=== PATIENT | female | born 1935 | race Caucasian/White ===

== ENCOUNTER → 2016-03-05 | Outpatient (CLI) | payer MEDICARE, BC ==
--- NOTE | 2016-03-05 12:16 | WWHP ---
DATE OF SERVICE: 03/05/2016 CHIEF COMPLAINT: The patient is here for her routine gynecologic exam and mammogram. HPI: This is an 80-year-old G8, P6-0-2-5 with an LMP of 1989. The patient is without gynecologic complaints. She denies any postmenopausal bleeding. PAST MEDICAL HISTORY: Chronic hypertension and history of angina. MEDICATIONS: 1. Imdur generic 30 mg daily. 2. Maxzide 37.5/25 mg daily. 3. Aspirin 81 mg daily. 4. Vitamin D 5000 units daily. 5. CoQ10 one daily. 6. Magnesium 250 mg daily. 7. Cholesterol medication and she does not know the name, she takes this daily. Allergies to CODEINE, SULFA, PENICILLIN and SHELLFISH. 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 SOCIAL HISTORY: She denies tobacco and drug use and has 0 to 1 alcoholic drink per month. She has been since 1952. 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 FAMILY HISTORY: Maternal aunt had uterine cancer. Sister has breast cancer in her 80s, brother had bladder cancer, and another brother had prostate cancer. REVIEW OF SYSTEMS: Weight has been stable. She denies respiratory, cardiac, or GI problems. She denies maltreatment or falling. : She denies any problems with urinary incontinence. PHYSICAL EXAM: Blood pressure 130/79. Height 5 feet 0 inches. Weight 135 pounds. Temperature 98.4, pulse 80. This a well-developed, well-nourished white female who is alert and oriented x3, in no acute distress. HEENT is within normal limits. NECK: Supple without mass or thyromegaly. CHEST AND LUNGS: Clear to auscultation. HEART: Regular rate and rhythm. Breasts are without mass or discharge. Axillary exam is negative for adenopathy. BACK: Negative for CVA tenderness. ABDOMEN: Soft, nontender, without palpable mass. PELVIC EXAM: External genitalia reveals mild to moderate atrophy without lesions. Cervix and vagina reveal mild to moderate atrophy without lesions. There is a grade 1 to 2 cystocele. The uterus is midposition, nongravid size and nontender. There are no palpable adnexal masses or tenderness. Rectovaginal exam is negative for mass or tenderness and is negative for occult blood. EXTREMITIES: Nontender. IMPRESSION: An 80-year-old menopausal female with an asymptomatic small cystocele and otherwise unremarkable gynecologic exam. PLAN: 1. Pap smear was deferred, since she had normal one less than 2 years ago. 2. Self breast examination was discussed. 3. Mammogram will be done today. 4. She will continue to follow up with Dr. Vargas for blood pressure evaluation and treatment. 5. Osteoporosis prevention was discussed. 6. She did receive her flu shot this fall. 7. We will plan on repeating bone density test in 1 to 2 years. 8. She will return in one year.
--- NOTE | 2016-03-07 08:00 | MM ---
Reason for exam: screening (asymptomatic). Last mammogram was performed 1 year and 9 months ago. History: Patient is postmenopausal. Family history of breast cancer in sister at age 85. Physical Findings: A clinical breast exam by your physician is recommended on an annual basis and results should be correlated with mammographic findings. MG 3D Screening Mammo W/Cad Bilateral CC and MLO view(s) were taken. Prior study comparison: May 23, 2014, bilateral MG screening mammo w CAD. December 17, 2010, bilateral digital screening mammo w/CAD. There are scattered fibroglandular densities. No significant changes when compared with prior studies. ASSESSMENT: Negative, BI-RAD 1 RECOMMENDATION: Routine screening mammogram of both breasts in 1 year.
== END | disposition home or self-care (01) ==
LOC: WWCWWP 10:29
PROVIDERS: ATTEND Obstetrics & Gynecology
DX: Z12.31 Encounter for screening mammogram for malignant neoplasm of breast (principal)
CPT/HCPCS: 77063; G0202

== ENCOUNTER 2016-10-09 08:33 | Emergency (ER) | payer MEDICARE, BC ==
--- NOTE | 2016-10-09 08:53 | ED ---
General Adult HPI - General Chief complaint: Nausea/Vomiting/Diarrhea Stated complaint: Dx DIVERTICULITIS, STILL HAVING PAIN AND VOMITING Time Seen by Provider: 10/09/16 08:46 Source: patient, RN notes reviewed Mode of arrival: wheelchair Limitations: no limitations - History of Present Illness Initial comments: 81-year-old female presents to the emergency department with a chief complaint of abdominal pain. Patient has had this lower abdominal pain for the past 2 days. She called her doctor he started her on antibiotics for diverticulitis. Patient states is how her diverticulitis always presents it starts low like it is in the bladder and she has terrible pain. Patient states that she has had no nausea vomiting fever chills. Patient states her first dose of antibiotics for 3 AM because she had elevated blood pressures today so she did not want to take them. Patient states that she is having burning type pain but denies any changes in urination. Patient states that she was diagnosed by colonoscopy with diverticulitis once causes it is very hard to find. Patient states this feels exactly like one of her flareups.Patient denies any recent fever, chills, shortness of breath, chest pain, back pain, nausea vomiting, numbness or tingling, dysuria or hematuria, constipation or diarrhea, headaches or visual changes, or any other current symptoms. - Related Data Home Medications Medication Instructions Recorded Confirmed Cyanocobalamin [Vitamin B-12 1,000 injection IM Q30D 09/09/14 10/09/16 Injection] Isosorbide Mononitrate ER [Imdur] 30 mg PO HS 09/09/14 10/09/16 Cholecalciferol [Vitamin D3] 5,000 unit PO DAILY 09/10/14 10/09/16 Magnesium Oxide [Mag-Ox] 250 mg PO DAILY 01/21/16 10/09/16 Aspirin EC [Ecotrin Low Dose] 81 mg PO DAILY 01/25/16 10/09/16 Levofloxacin [Levaquin] 250 mg PO DAILY 10/09/16 10/09/16 Metoprolol Succinate [Toprol XL] 25 mg PO DAILY 10/09/16 10/09/16 Previous Rx's Medication Instructions Recorded Hydrocodone/Acetaminophen [Trail 1 each PO Q6HR PRN #20 tab 10/09/16 5-325] Allergies Allergy/AdvReac Type Severity Reaction Status Date / Time codeine Allergy Unknown Verified 10/09/16 09:08 Penicillins Allergy Unknown Verified 10/09/16 09:08 shellfish derived [Shellfish] Allergy Unknown Verified 10/09/16 09:08 Sulfa (Sulfonamide Allergy Unknown Verified 10/09/16 09:08 Antibiotics) ibuprofen AdvReac Unknown Verified 10/09/16 09:08 Review of Systems ROS Statement: Those systems with pertinent positive or pertinent negative responses have been documented in the HPI. ROS Other: All systems not noted in ROS Statement are negative. Past Medical History Past Medical History: Chest Pain / Angina, Hypertension Additional Past Medical History / Comment(s): diverticulitis History of Any Multi-Drug Resistant Organisms: None Reported Past Surgical History: Appendectomy Past Anesthesia/Blood Transfusion Reactions: No Reported Reaction Past Psychological History: No Psychological Hx Reported Smoking Status: Never smoker Past Alcohol Use History: Occasional Past Drug Use History: None Reported - Past Family History Mother Additional Family Medical History / Comment(s): Angina Father Family Medical History: CVA/TIA Sister(s) Family Medical History: CVA/TIA General Exam - General Exam Comments Initial Comments: General: The patient is awake and alert, in no distress, and does not appear acutely ill. Eye: Pupils are equal, round and reactive to light, extra-ocular movements are intact; there is normal conjunctiva bilaterally. No signs of icterus. Ears, nose, mouth and throat: There are moist mucous membranes and no oral lesions. Neck: The neck is supple, there is no tenderness. Cardiovascular: There is a regular rate and rhythm. No murmur, rub or gallop is appreciated. Respiratory: Lungs are clear to auscultation, respirations are non-labored, breath sounds are equal. No wheezes, stridor, rales, or rhonchi. Gastrointestinal: Soft, non-distended, non-tender abdomen without masses or organomegaly noted. There is no rebound or guarding present. No CVA tenderness. Bowel sounds are unremarkable. Back: There is no tenderness to palpation in the midline. There is no obvious deformity. No rashes noted. Musculoskeletal: Normal ROM, no tenderness, There is no pedal edema. There is no calf tenderness or swelling. Sensation intact. Pulses equal bilaterally 2+. Neurological: CN II-XII intact, There are no obvious motor or sensory deficits. Coordination appears grossly intact. Speech is normal. Skin: Skin is warm and dry and no rashes or lesions are noted. Psychiatric: Cooperative, appropriate mood & affect, normal judgment. Limitations: no limitations Course Vital Signs 10/09/16 10/09/16 10/09/16 08:34 11:36 12:00 Temperature 97.6 F Pulse Rate 72 66 68 Respiratory 16 16 18 Rate Blood Pressure 156/93 191/79 160/75 O2 Sat by Pulse 96 95 95 Oximetry 10/09/16 12:30 Temperature 97.9 F Pulse Rate 62 Respiratory 16 Rate Blood Pressure 159/74 O2 Sat by Pulse 94 L Oximetry Medical Decision Making - Medical Decision Making 81-year-old female presents to the emergency department with a chief complaint of abdominal pain. At this time patient's CAT scan blood work have been reviewed. There is no white blood cell count CAT scan is not shy no diverticulitis. This time we discussed patient can continue her Levaquin for home. We discussed close follow-up with her doctor. We will give her pain medications to help we did discuss return parameters all her questions. Patient stated that she understood and she is given plan. She'll be discharged home. - Lab Data Result diagrams: 10/09/16 09:35 10/09/16 09:35 Lab Results 10/09/16 10/09/16 10/09/16 Range/Units 09:35 09:35 09:35 WBC 6.9 (3.8-10.6) k/uL RBC 4.11 (3.80-5.40) m/uL Hgb 14.0 (11.4-16.0) gm/dL Hct 42.0 (34.0-46.0) % MCV 102.1 H (80.0-100.0) fL MCH 34.1 (25.0-35.0) pg MCHC 33.4 (31.0-37.0) g/dL RDW 13.7 (11.5-15.5) % Plt Count 244 (150-450) k/uL Neutrophils % 75 % Lymphocytes % 17 % Monocytes % 5 % Eosinophils % 1 % Basophils % 0 % Neutrophils # 5.2 (1.3-7.7) k/uL Lymphocytes # 1.2 (1.0-4.8) k/uL Monocytes # 0.3 (0-1.0) k/uL Eosinophils # 0.1 (0-0.7) k/uL Basophils # 0.0 (0-0.2) k/uL Macrocytosis Slight Sodium 130 L (137-145) mmol/L Potassium 4.8 (3.5-5.1) mmol/L Chloride 96 L (98-107) mmol/L Carbon Dioxide 26 (22-30) mmol/L Anion Gap 8 mmol/L BUN 20 H (7-17) mg/dL Creatinine 0.86 (0.52-1.04) mg/dL Est GFR (MDRD) Af Amer >60 (>60 ml/min/1.73 sqM) Est GFR (MDRD) Non-Af >60 (>60 ml/min/1.73 sqM) Glucose 100 H (74-99) mg/dL Plasma Lactic Acid Jesus 1.0 (0.7-2.0) mmol/L Calcium 9.7 (8.4-10.2) mg/dL Total Bilirubin 0.8 (0.2-1.3) mg/dL AST 27 (14-36) U/L ALT 32 (9-52) U/L Alkaline Phosphatase 55 (38-126) U/L Total Protein 7.3 (6.3-8.2) g/dL Albumin 4.1 (3.5-5.0) g/dL Amylase 82 (30-110) U/L Lipase 165 (23-300) U/L Urine Color Urine Appearance (Clear) Urine pH (5.0-8.0) Ur Specific [place] (1.001-1.035) Urine Protein (Negative) Urine Glucose (UA) (Negative) Urine Ketones (Negative) Urine Blood (Negative) Urine Nitrite (Negative) Urine Bilirubin (Negative) Urine Urobilinogen (<2.0) mg/dL Ur Leukocyte Esterase (Negative) Urine RBC (0-5) /hpf Urine WBC (0-5) /hpf Amorphous Sediment (None) /hpf Urine Mucus (None) /hpf 10/09/16 Range/Units 09:35 WBC (3.8-10.6) k/uL RBC (3.80-5.40) m/uL Hgb (11.4-16.0) gm/dL Hct (34.0-46.0) % MCV (80.0-100.0) fL MCH (25.0-35.0) pg MCHC (31.0-37.0) g/dL RDW (11.5-15.5) % Plt Count (150-450) k/uL Neutrophils % % Lymphocytes % % Monocytes % % Eosinophils % % Basophils % % Neutrophils # (1.3-7.7) k/uL Lymphocytes # (1.0-4.8) k/uL Monocytes # (0-1.0) k/uL Eosinophils # (0-0.7) k/uL Basophils # (0-0.2) k/uL Macrocytosis Sodium (137-145) mmol/L Potassium (3.5-5.1) mmol/L Chloride (98-107) mmol/L Carbon Dioxide (22-30) mmol/L Anion Gap mmol/L BUN (7-17) mg/dL Creatinine (0.52-1.04) mg/dL Est GFR (MDRD) Af Amer (>60 ml/min/1.73 sqM) Est GFR (MDRD) Non-Af (>60 ml/min/1.73 sqM) Glucose (74-99) mg/dL Plasma Lactic Acid Jesus (0.7-2.0) mmol/L Calcium (8.4-10.2) mg/dL Total Bilirubin (0.2-1.3) mg/dL AST (14-36) U/L ALT (9-52) U/L Alkaline Phosphatase (38-126) U/L Total Protein (6.3-8.2) g/dL Albumin (3.5-5.0) g/dL Amylase (30-110) U/L Lipase (23-300) U/L Urine Color Yellow Urine Appearance Cloudy H (Clear) Urine pH 7.5 (5.0-8.0) Ur Specific [place] 1.012 (1.001-1.035) Urine Protein Trace H (Negative) Urine Glucose (UA) Negative (Negative) Urine Ketones Negative (Negative) Urine Blood Negative (Negative) Urine Nitrite Negative (Negative) Urine Bilirubin Negative (Negative) Urine Urobilinogen <2.0 (<2.0) mg/dL Ur Leukocyte Esterase Negative (Negative) Urine RBC 2 (0-5) /hpf Urine WBC <1 (0-5) /hpf Amorphous Sediment Rare H (None) /hpf Urine Mucus Rare H (None) /hpf - Radiology Data Radiology results: report reviewed, image reviewed Disposition Clinical Impression: Abdominal pain Disposition: HOME SELF-CARE Condition: Stable Instructions: Abdominal Pain (ED) Additional Instructions: Please use medication as discussed. Please follow up with family doctor if symptoms have not improved over the next two days. Please return to the emergency room if your symptoms increase or worsen or for any other concerns. Prescriptions: Hydrocodone/Acetaminophen [Trail 5-325] 1 each PO Q6HR PRN #20 tab PRN Reason: Pain Referrals: Deven Vargas MD [Primary Care Provider] - 1-2 days
[2016-10-09] MEDS ORDERED: RX INFO: IV CONTRAST WAS GIVEN 1 EACH MISC MISCELLANE PRN (09:24)
[2016-10-09] MEDS ORDERED: methylPREDNISolone SOD SUCCI 125 MG/2 ML VIAL IV STA (09:33)
[2016-10-09] MEDS ORDERED: diphenhydrAMINE 50 MG/ML 1 ML VIAL IVP STA (09:33)
[2016-10-09 09:53] LABS: Basophils % (A) 0 %; CH 35.1; CHCM 34.5; Eosinophils # (A) 0.1 k/uL (0-0.7); Eosinophils % (A) 1 %; HDW 2.24; Luc # (Auto) 0.12; Luc % (Auto) 2; Lymphocytes # (A) 1.2 k/uL (1.0-4.8); Lymphocytes % (A) 17 %; MCH 34.1 pg (25.0-35.0); MCHC 33.4 g/dL (31.0-37.0); MCV 102.1 fL (80.0-100.0); Macrocytosis Slight; Mean Platelet Volume 7.6; Monocytes # (A) 0.3 k/uL (0-1.0); Monocytes % (A) 5 %; Neutrophils # (A) 5.2 k/uL (1.3-7.7); Neutrophils % (A) 75 %; RBC 4.11 m/uL (3.80-5.40); RDW 13.7 % (11.5-15.5); WBC 6.9 k/uL (3.8-10.6); WBC (Perox) 6.93
[2016-10-09 09:54] LABS: Amorphous Sediment,Urine Rare /hpf; Appearance,Urine Cloudy (Clear); Bilirubin,Urine Negative (Negative); Glucose,Urine (UA) Negative (Negative); Ketones,Urine Negative (Negative); Leukocyte Esterase,Urine Negative (Negative); Mucus,Urine Rare /hpf; Nitrite,Urine Negative (Negative); PH, Urine 7.5 (5.0-8.0); Particle Count 10359; Protein,Urine Trace (Negative); RBC,Urine 2 /hpf (0-5); Specific Gravity,Urine 1.012 (1.001-1.035); UA Billing (MACRO vs. MICRO) MICRO; Urobilinogen,Urine <2.0 mg/dL (<2.0); WBC,Urine <1 /hpf (0-5)
[2016-10-09 10:02] LABS: ALT 32 U/L (9-52); AST 27 U/L (14-36); Alkaline Phosphatase 55 U/L (38-126); Amylase 82 U/L (30-110); Anion Gap 8 mmol/L; Blood Urea Nitrogen 20 mg/dL (7-17); Calcium 9.7 mg/dL (8.4-10.2); Carbon Dioxide 26 mmol/L (22-30); Chloride 96 mmol/L (98-107); Glucose 100 mg/dL (74-99); Non-African American GFR(MDRD) >60 (>60 ml/min/1.73 sqM); Sodium 130 mmol/L (137-145); Total Bilirubin 0.8 mg/dL (0.2-1.3); Total Protein 7.3 g/dL (6.3-8.2)
[2016-10-09 10:05] LABS: Potassium 4.8 mmol/L (3.5-5.1)
--- NOTE | 2016-10-09 11:17 | CT ---
EXAMINATION TYPE: CT abdomen pelvis w con DATE OF EXAM: 10/09/2016 HISTORY: Diverticulitis, vomitting and pain CT DLP: 456.30mGycm Automated Exposure Control for Dose Reduction was Utilized. CONTRAST: CT scan of the abdomen and pelvis is performed with IV Contrast, patient injected with 100 ml mL of O mnipaque 300. COMPARISON: CT [facility]otech abdomen and pelvis dated 01/21/2016 FINDINGS: LUNG BASES: Multifocal scarring is seen within the lung bases with no focal consolidation or pleural effusion. LIVER/GB: A 7 mm hepatic cyst measures Hounsfield units of simple fluid on coronal images. Subcapsula r 5 mm hypoattenuated hepatic lesion that is too small to accurately characterize as seen on series 3 image 15 and series 7 image 15. This statistically represents a second cyst. Focal fatty infiltratio n is seen near the falciform for the ligamentum teres. Gallbladder is unremarkable. PANCREAS: No significant abnormality is seen. No ductal dilatation. SPLEEN: No significant abnormality is seen. ADRENALS: No significant abnormality is seen. KIDNEYS: No significant abnormality is seen. BOWEL: Numerous sigmoid diverticula are present without pericolonic fat stranding. Few scattered panc olonic diverticula are also seen without surrounding inflammatory change. There is focal narrowing of the sigmoid colon in a short segment on series 3 image 15, which may be related to peristalsis as it is not as pronounced on coronal imaging. There is no evidence of bowel obstruction. UTERUS/ADNEXA: No gross abnormality seen. LYMPH NODES: No greater than 1cm abdominal or pelvic lymph nodes are appreciated. OSSEOUS STRUCTURES: Degenerative changes are appreciated of the lumbosacral spine as well as grade 1 anterolisthesis of L4 on L5. Degenerative changes are also seen of the femoral acetabular joints. OTHER: Severe circumferential calcific changes are seen of the abdominal aorta and its branches. Ther e is a fusiform short segment area of infrarenal abdominal aortic ectasia measuring 2.6 cm best seen on coronal series 7 image 34 spanning approximately 2 cm in length. Calcifications are seen at the os tia of the aortic branch vessels with symmetric perfusion to the kidneys. No gross evidence of bowel wall thickening.. IMPRESSION: 1. No significant acute finding is seen to account for patient's clinical symptoms. No evidence of mayi wel obstruction. Focal area of narrowing within the sigmoid colon is thought to relate to peristalsis . 2. Pancolonic diverticulosis without evidence of diverticulitis. Severe calcific atheromatous changes of the abdominal aorta, its branches, and ostia of the branch ve ssels. 3. Simple hepatic cyst and additional lesion that is too small to accurately characterize but statist ically also represents a simple cyst. 4. Grade 1 anterolisthesis of L4 on L5.
[2016-10-09] MEDS ORDERED: MORPHINE SULFATE 4 MG/ML SYRINGE IV STA (11:48)
[2016-10-09 12:30] VITALS: BP 159/74; PULSE 62; RESP 16; TEMP 97.9
[2016-10-10] MEDS ORDERED: FAMOTIDINE 20 MG/2 ML VIAL IV SCH (09:00)
== END 2016-10-09 12:44 | disposition home or self-care (01) ==
LOC: EC 08:33
DX: R10.30 Lower abdominal pain, unspecified (principal); I10 Essential (primary) hypertension; Z86.79 Personal history of other diseases of the circulatory system; Z79.82 Long term (current) use of aspirin; Z79.899 Other long term (current) drug therapy; Z88.0 Allergy status to penicillin; Z88.2 Allergy status to sulfonamides; Z88.5 Allergy status to narcotic agent; Z88.6 Allergy status to analgesic agent; Z91.013 Allergy to seafood; Z90.49 Acquired absence of other specified parts of digestive tract
CPT/HCPCS: 99284; 96374; 96375 ×3; 36415; 80053; 82150; 83605; 83690; 85025; 81001; 87040; 87086; 74177; J2270; J1200; J2930; Q9967

== ENCOUNTER 2016-11-12 10:49 | Day surgery (SDC) | payer MEDICARE, BC ==
[2016-11-06 15:10] VITALS: BMI 24.6
[~2016-11-12 10:49] MED LIST: CLINDAMYCIN 900 MG in DEXTROSE 5% IN WATER 50 ML IVPB ONE; DEXAMETHASONE SOD PHOSPHATE 10 MG/ML 1 ML VIAL IV ONE; HEPARIN SODIUM,PORCINE 5,000 UNIT/ML 1 ML VIAL SQ ONE; LIDOCAINE 1% 20 ML VIAL (10MG/ML) FOR IV START INTRADERMA PRN; ONDANSETRON 4 MG/2 ML VIAL IVP ONE
--- NOTE | 2016-11-12 12:36 | P.GSHP ---
History of Present Illness H&P Date: 11/12/16 Chief Complaint: Right upper quadrant pain This 81-year-old female who's had difficulties with right upper quadrant pain. Her recent HIDA scan shows abnormal ejection fraction consistent with chronic cholecystitis. She presents today for laparoscopic cholecystectomy Past Medical History Past Medical History: Hypertension Additional Past Medical History / Comment(s): diverticulitis History of Any Multi-Drug Resistant Organisms: None Reported Past Surgical History: Appendectomy Past Anesthesia/Blood Transfusion Reactions: No Reported Reaction Smoking Status: Never smoker - Past Family History Brother(s) Family Medical History: Cancer Mother Additional Family Medical History / Comment(s): Angina Father Family Medical History: CVA/TIA Sister(s) Family Medical History: Cancer, CVA/TIA Medications and Allergies Home Medications Medication Instructions Recorded Confirmed Type Cyanocobalamin [Vitamin B-12 1,000 mcg IM Q30D 09/09/14 11/06/16 History Injection] Isosorbide Mononitrate ER [Imdur] 30 mg PO HS 09/09/14 11/06/16 History Cholecalciferol [Vitamin D3] 1,000 unit PO DAILY 09/10/14 11/06/16 History Magnesium Oxide [Mag-Ox] 250 mg PO DAILY 01/21/16 11/06/16 History Aspirin EC [Ecotrin Low Dose] 81 mg PO DAILY 01/25/16 11/06/16 History Metoprolol Succinate [Toprol XL] 50 mg PO DAILY 10/09/16 11/06/16 History LORazepam [Ativan] 0.5 mg PO TID PRN 11/06/16 11/06/16 History Ubidecarenone [Co Q-10] 100 mg PO DAILY 11/06/16 11/06/16 History Valsartan [Diovan] 40 mg PO AC-SUPPER PRN 11/06/16 11/06/16 History traMADol HCL/ACETAMINOPHEN 0.5 tab PO HS PRN 11/06/16 11/06/16 History [Ultracet 37.5-325] Allergies Allergy/AdvReac Type Severity Reaction Status Date / Time codeine Allergy Unknown Verified 11/12/16 12:30 Penicillins Allergy Unknown Verified 11/12/16 12:30 shellfish derived [Shellfish] Allergy Unknown Verified 11/12/16 12:30 Sulfa (Sulfonamide Allergy Unknown Verified 11/12/16 12:30 Antibiotics) ibuprofen AdvReac Unknown Verified 11/12/16 12:30 Surgical - Exam - General well developed, no distress - Eyes PERRL - ENT normal pinna - Neck no masses - Respiratory normal expansion - Cardiovascular Rhythm: regular - Abdomen Abdomen: soft, non tender Assessment and Plan Plan: Chronic cholecystitis. We'll perform laparoscopic cholecystectomy
[2016-11-12] MEDS: LACTATED RINGERS 1,000 ML IV ONE ×2 (12:49→13:30)
[2016-11-12] MEDS ORDERED: ROCURONIUM BROMIDE 10 MG/ML 10 ML VIAL IV ONE (13:33)
[2016-11-12] MEDS ORDERED: PROPOFOL 10 MG/ML 20 ML VIAL IV ONE (13:33)
[2016-11-12] MEDS ORDERED: GLYCOPYRROLATE 0.2 MG/ML 2 ML VIAL ONE (13:33)
[2016-11-12] MEDS ORDERED: LABETALOL 5 MG/ML VIAL MDV ONE (13:33)
[2016-11-12] MEDS ORDERED: NEOSTIGMINE 1 MG/ML 10 ML VIAL ONE (13:33)
[2016-11-12] MEDS ORDERED: LIDOCAINE 1% INJ 10MG/ML (20 ML MDV) ONE (13:33)
[2016-11-12] MEDS ORDERED: fentaNYL (PF) 50 MCG/ML 2 ML AMP ONE (13:33)
[2016-11-12] MEDS ORDERED: SUCCINYLCHOLINE CHLORIDE 100 MG/5 ML SYR IV ONE (13:33)
[2016-11-12] MEDS ORDERED: LIDOCAINE 2%-EPI 1:100,000 20 ML VIAL SQ ONE (13:58)
--- NOTE | 2016-11-12 14:13 | P.OP ---
Date of Procedure: 11/12/16 Preoperative Diagnosis: Cholecystitis Postoperative Diagnosis: Cholecystitis Procedure(s) Performed: Laparoscopic cholecystectomy Anesthesia: MELVIN Surgeon: Celestine Oakes Estimated Blood Loss (ml): 5 Pathology: other (Gallbladder) Condition: stable Disposition: PACU Description of Procedure: The patient was placed on the operating table. The patient received a general endotracheal tube anesthesia. The patients abdomen was prepped and draped in the usual sterile fashion. Through an infraumbilical stab incision, the fascia of the anterior abdominal wall was grasped with a pair of Kochers and then the Veress needle was placed in the peritoneal cavity. Position of the Veress needle was confirmed with positive drop test. The abdomen was then insufflated. After adequate insufflation, the 10 mm trocar was placed in the peritoneal cavity. Following this the laparoscope was placed in the peritoneal cavity. The patient was placed in the head-up, right side up position and then a 5 mm trocar was placed in the right lateral and right subcostal position under direct visualization. A 8 mm trocar was placed in the epigastric position. The gallbladder was grasped in the fundus and infundibulum. Traction on the gallbladder was placed in the lateral and the cephalad positions. The triangle of Calot was visualized.. The cystic duct was bluntly dissected until the union of the cystic duct and common bile duct was seen. The cystic duct was then divided and sealed with the Harmonic scissors. A PDS Endoloop was then placed throughout the cystic duct stump. The cystic artery divided and sealed with the Harmonic scissors. The gallbladder was then removed from the liver bed using Harmonic scissors. The gallbladder was then extracted through the epigastric port site. Operative field was checked for any bleeding spots and Harmonic scissors was used to coagulate the liver bed. The abdomen was irrigated. The trocars were removed. The skin was closed using interrupted 3-0 Vicryl suture. Dermabond dressing were applied. The patient tolerated the procedure well.
[2016-11-12 14:39] VITALS: TEMP 97
[2016-11-12] MEDS: HYDROmorphone 1 MG/ML 1 ML SYRINGE IVP ONE ×2 (14:58→15:05)
[2016-11-12 15:17] VITALS: RESP 16
[2016-11-12] MEDS ORDERED: LACTATED RINGERS 1,000 ML IV ONE (15:18)
[2016-11-12] MEDS ORDERED: HYDROcodone/APAP 7.5-325MG 1 EACH TAB PO ONE (16:15)
[2016-11-12 16:25] VITALS: BP 133/78; PULSE 59
== END 2016-11-12 17:09 | disposition home or self-care (01) ==
LOC: OR 10:49
PROVIDERS: ATTEND Surgery
DX: K81.1 Chronic cholecystitis (principal); I10 Essential (primary) hypertension; Z79.82 Long term (current) use of aspirin; Z79.899 Other long term (current) drug therapy; Z88.6 Allergy status to analgesic agent; Z88.5 Allergy status to narcotic agent; Z88.0 Allergy status to penicillin; Z88.2 Allergy status to sulfonamides
CPT/HCPCS: 47562; 88304; J1644; J1100; J2710; J2405; J2001; J3010; J1170; J0330; J2704

== ENCOUNTER → 2017-03-12 | Outpatient (CLI) | payer MEDICARE, BC ==
[2017-03-12 16:53] LABS: Potassium 4.4 mmol/L (3.5-5.1)
== END | disposition home or self-care (01) ==
LOC: LABWHC1 15:22
PROVIDERS: ATTEND Internal Medicine Cardiovascular Disease
DX: I10 Essential (primary) hypertension (principal)
CPT/HCPCS: 36415; 80051; 82565; 84520

== ENCOUNTER → 2017-03-24 | Outpatient (CLI) | payer MEDICARE, BC ==
--- NOTE | 2017-03-24 11:50 | WWHP ---
[facility] - HISTORY AND PHYSICAL DATE OF DICTATION: 03/24/2017 CHIEF COMPLAINT: The patient is here for her routine gynecologic exam and mammogram. HPI: This is an 81-year-old, G8, P6-0-2-5 with an LMP of 1989. The patient is without gynecologic complaints. PAST MEDICAL HISTORY: Chronic hypertension and history of angina. MEDICATIONS: 1. Imdur generic 30 mg daily. 2. Maxzide 37.5/25 mg daily. 3. Aspirin 81 mg daily. 4. Vitamin D 2000 units daily. 5. Co Q10 1 daily. 6. Magnesium 250 mg daily. 7. She was given a prescription for Crestor 1 daily, but she has not started this yet. ALLERGIES: TO CODEINE, SULFA, AND PENICILLIN. PAST SURGICAL HISTORY: Appendectomy at age 16, multiple colonoscopies in the past and most recent was in 2017, laparoscopic cholecystectomy 2017, bilateral cataract surgery 2017. Osteopenia. 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 FAMILY HISTORY: Maternal aunt had uterine cancer. Sister has breast cancer in her 80s. Brothers had bladder cancer and another brother had prostate cancer. SOCIAL HISTORY: She denies tobacco and drug use and has 0 to 1 alcohol-containing drink per month. She has been since 1953 and is infrequently sexually active. 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 REVIEW OF SYSTEMS: She has lost 3 pounds over the last year. She denies respiratory cardiac or GI problems. She denies maltreatment or falling. She denies any significant problems with urinary incontinence. PHYSICAL EXAM: Blood pressure 162/82, height 5 feet 0 inches, weight 132 pounds. BMI 26. Temperature 97.9, pulse 71. This is a well-developed, well-nourished, white female, who is alert and oriented x3, in no acute distress. HEENT: Within normal limits. NECK: Supple without mass or thyromegaly chest and LUNGS: Clear to auscultation. HEART: Regular rate and rhythm. Breasts are without mass or discharge. Axillary exam is negative for adenopathy. Back negative for CVA tenderness. ABDOMEN: Soft, nontender, without palpable masses. Pelvic exam external genitalia reveals [id number] atrophy without lesions. Cervix and vagina reveals mild-to- moderate atrophy without lesions. There is no significant prolapse noted. The uterus is mid position nongravid size and nontender. There are no palpable adnexal masses or tenderness. Rectovaginal exam is negative for mass or tenderness and is negative for occult blood. Extremities nontender. IMPRESSION: 1. 81-year-old menopausal female with normal gynecologic exam. 2. Osteopenia. PLAN: 1. Pap smear was performed. 2. Self breast examination was discussed. 3. Mammogram will be done today. 4. Osteoporosis prevention was discussed. I have recommended repeating her bone density testing. She would like to repeat this next year when she comes for her annual exam. 5. She did receive a flu shot this past fall. 6. She will return in 1 year. MMODL / IJN: [id number] / [id number]
--- NOTE | 2017-03-25 10:51 | MM ---
Reason for exam: screening (asymptomatic). Last mammogram was performed 1 year and 1 month ago. History: Patient is postmenopausal. Family history of breast cancer in sister at age 85. Physical Findings: A clinical breast exam by your physician is recommended on an annual basis and results should be correlated with mammographic findings. MG 3D Screening Mammo W/Cad Bilateral CC and MLO view(s) were taken. Prior study comparison: March 05, 2016, bilateral MG 3d screening mammo w/cad. May 23, 2014, bilateral MG screening mammo w CAD. There are scattered fibroglandular densities. Finding: There are typically benign vascular, round calcifications in both breasts. There is no discrete abnormality. ASSESSMENT: Benign, BI-RAD 2 RECOMMENDATION: Routine screening mammogram of both breasts in 1 year.
== END | disposition home or self-care (01) ==
LOC: WWCWWP 09:12
PROVIDERS: ATTEND Obstetrics & Gynecology
DX: Z12.31 Encounter for screening mammogram for malignant neoplasm of breast (principal)
CPT/HCPCS: 77063; 77067

== ENCOUNTER → 2017-06-11 | Outpatient (CLI) | payer MEDICARE, BC ==
--- NOTE | 2017-06-11 16:56 | CT ---
EXAMINATION TYPE: CT abdomen pelvis w con DATE OF EXAM: 06/11/2017 COMPARISON: 10/09/2016 HISTORY: Follow up for diverticulitis CT DLP: 433.5 mGycm Automated exposure control for dose reduction was used. TECHNIQUE: Helical acquisition of images was performed from the lung bases through the pelvis. CONTRAST: Performed with Oral Contrast and with IV Contrast, patient injected with 80ml mL of Isovue 300. FINDINGS: There is mild linear density at the lung bases consistent with subsegmental atelectasis. There is no pleural effusion. Heart is slightly enlarged. Thoracic aorta is atheromatous. Liver spleen pancreas appear normal. Bile ducts are not dilated. Gallbladder is not seen. There is no adrenal mass. Kidneys show satisfactory contrast opacification. There is no hydronephrosi s. Abdominal aorta is atheromatous. There is no retroperitoneal adenopathy. The iliac arteries are at heromatous. There is minimal fat stranding around the junction of the descending colon with the sigmoid colon. Th ere are multiple diverticula in the sigmoid colon. There is no evidence of an abscess. There is no as cites. I see no evidence of a bowel obstruction. There is no intestinal wall thickening. There are sp ondylotic changes in the lumbar spine. There is no compression fracture. Uterus is anteverted. Bladde r distends smoothly. There is no sign of a pelvic mass. IMPRESSION: EXTENSIVE COLONIC DIVERTICULOSIS. THERE IS VERY MINIMAL INFLAMMATORY CHANGE IN THE PROXIMAL SIGMOID C OLON CONSISTENT WITH MILD FOCAL DIVERTICULITIS. THIS IS NEW COMPARED TO THE OLD CT SCAN. NO ABSCESS. There is stable scarring and subsegmental atelectasis at the lung bases.
== END | disposition home or self-care (01) ==
LOC: RADCTMAIN 14:42
PROVIDERS: ATTEND Surgery
DX: K57.30 Diverticulosis of large intestine without perforation or abscess without bleeding (principal); Z91.013 Allergy to seafood; Z88.0 Allergy status to penicillin; Z88.6 Allergy status to analgesic agent; Z88.2 Allergy status to sulfonamides
CPT/HCPCS: 82565; 84520; 74177; 36415; Q9967

== ENCOUNTER → 2018-06-01 | Outpatient (CLI) | payer MEDICARE, BC ==
[2018-06-01 14:06] VITALS: BP 150/80; PULSE 65; RESP 18; TEMP 98.2; BMI 25.4
--- NOTE | 2018-06-01 14:42 | P.HPOB ---
History of Present Illness H&P Date: 06/01/18 Chief Complaint: The patient is here for her routine gynecologic exam and ma mmogram. This is an 82-year-old with an LMP of 1989. The patient is without gynecologic complaints and denies any postmenopausal bleeding. She is sexually active. Review of Systems Her weight has been stable. She denies respiratory, cardiac and G.I. problems. She denies maltreatment or problems with falling. : she denies any significant problems with urinary leakage. Past Medical History Past Medical History: Hypertension Additional Past Medical History / Comment(s): diverticulosis/diverticulitis and angina in the past. Osteopenia. 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 History of Any Multi-Drug Resistant Organisms: None Reported Past Surgical History: Appendectomy, Cholecystectomy Additional Past Surgical History / Comment(s): Bilateral cataract surgery. Colonoscopy 2016(multiple in past). Past Anesthesia/Blood Transfusion Reactions: No Reported Reaction Past Psychological History: No Psychological Hx Reported Smoking Status: Never smoker Past Alcohol Use History: Occasional (0-1 per month) Past Drug Use History: None Reported Additional History: She has been since 1953 and is infrequently sexually active. 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 - Past Family History Brother(s) Family Medical History: Cancer Additional Family Medical History / Comment(s): Bladder cancer and another brother had prostate cancer. Mother Additional Family Medical History / Comment(s): Angina Father Family Medical History: CVA/TIA Sister(s) Family Medical History: Cancer, CVA/TIA Additional Family Medical History / Comment(s): Breast cancer in her 80s. Medications and Allergies Home Medications Medication Instructions Recorded Confirmed Type Cyanocobalamin [Vitamin B-12 1,000 mcg IM Q30D 09/09/14 06/01/18 History Injection] Isosorbide Mononitrate ER [Imdur] 30 mg PO HS 09/09/14 06/01/18 History Cholecalciferol [Vitamin D3] 1,000 unit PO DAILY 09/10/14 06/01/18 History Magnesium Oxide [Mag-Ox] 250 mg PO DAILY 01/21/16 06/01/18 History Aspirin EC [Ecotrin Low Dose] 81 mg PO DAILY 01/25/16 06/01/18 History LORazepam [Ativan] 0.5 mg PO TID PRN 11/06/16 06/01/18 History Ubidecarenone [Co Q-10] 100 mg PO DAILY 11/06/16 06/01/18 History traMADol HCL/ACETAMINOPHEN 0.5 tab PO HS PRN 11/06/16 06/01/18 History [Ultracet 37.5-325] Nebivolol HCl [Bystolic] 2.5 mg PO DAILY 06/01/18 06/01/18 History Allergies Allergy/AdvReac Type Severity Reaction Status Date / Time codeine Allergy Unknown Verified 06/01/18 14:00 Penicillins Allergy Unknown Verified 06/01/18 14:00 shellfish derived [Shellfish] Allergy Unknown Verified 06/01/18 14:00 Sulfa (Sulfonamide Allergy Unknown Verified 06/01/18 14:00 Antibiotics) ibuprofen AdvReac Unknown Verified 06/01/18 14:00 Exam Vital Signs Temp Pulse Resp BP Pulse Ox 06/01/18 14:03 98.2 F 65 18 150/80 99 Intake and Output 05/31/18 06/01/18 06/01/18 22:59 06:59 14:59 Other: Weight 58.967 kg Height 5'0", weight 130 pounds, BMI 25.4. This is a well-developed well-nourished white female who is alert and oriented times 3 in no acute distress. HEENT: Within normal limits. NECK: Supple without mass or thyromegaly. CHEST AND LUNGS: Clear to auscultation. HEART: Regular rate and rhythm. BREASTS: Are without mass or discharge. AXILLARY EXAM: Negative for adenopathy. BACK: Negative for CVA tenderness. ABDOMEN: Soft, nontender, without palpable masses. PELVIC EXAM: Normal external genitalia with mild to moderate atrophy. Cervix and vagina appear normal with mild atrophy. There is no unusual discharge. There is no evidence of prolapse. The uterus is midposition, nongravid size and nontender. There are no palpable adnexal masses or tenderness. RECTAL EXAM: rectovaginal exam is negative for mass or tenderness and is negative for occult blood. EXTREMITIES: Nontender. IMPRESSION: 1. 82-year-old menopausal female with normal gynecologic exam. 2. Osteopenia. PLAN: 1. Pap smear was deferred since she had a normal one on 03/24/17. 2. Self breast awareness was discussed with the patient. 3. Screening mammogram will be done today. 4. Osteoporosis prevention was discussed. I have stressed the importance of adequate calcium, vitamin D and regular exercise. Recommended amounts of calcium and vitamin D were also discussed. 5. She plans to get a flu shot next fall. She missed last year's flu shot. 6.She was advised to return in one year for her annual well woman exam.
--- NOTE | 2018-06-03 11:07 | MM ---
Reason for exam: screening (asymptomatic). Last mammogram was performed 1 year and 2 months ago. History: Patient is postmenopausal. Family history of breast cancer in sister at age 85. Physical Findings: A clinical breast exam by your physician is recommended on an annual basis and results should be correlated with mammographic findings. MG 3D Screening Mammo W/Cad Bilateral CC and MLO view(s) were taken. Prior study comparison: March 24, 2017, bilateral MG 3d screening mammo w/cad. March 05, 2016, bilateral MG 3d screening mammo w/cad. No significant changes when compared with prior studies. ASSESSMENT: Benign, BI-RAD 2 RECOMMENDATION: Routine screening mammogram of both breasts in 1 year.
== END ==
LOC: WWCWWP 13:46
PROVIDERS: ATTEND Obstetrics & Gynecology
DX: Z12.31 Encounter for screening mammogram for malignant neoplasm of breast (principal)
CPT/HCPCS: 77063; 77067

== ENCOUNTER 2018-10-19 15:12 | Observation (INO) | payer MEDICARE, BC ==
[2018-10-19] MEDS ORDERED: SODIUM CHLORIDE 0.9% 500 ML 500 ML IV STA (15:42)
[2018-10-19] MEDS ORDERED: MORPHINE SULFATE 4 MG/ML SYRINGE IVP STA (15:43)
[2018-10-19 16:04] LABS: Appearance,Urine Clear (Clear); Bilirubin,Urine Negative (Negative); Blood,Urine Trace (Negative); Color,Urine Light Yellow; Glucose,Urine (UA) Negative (Negative); Ketones,Urine Negative (Negative); Leukocyte Esterase,Urine Negative (Negative); Mucus,Urine Rare /hpf; Nitrite,Urine Negative (Negative); PH, Urine 5.5 (5.0-8.0); Protein,Urine Negative (Negative); RBC,Urine 1 /hpf (0-5); Specific Gravity,Urine 1.008 (1.001-1.035); Squamous Epithelial Cell,Urine <1 /hpf (0-4); Urobilinogen,Urine <2.0 mg/dL (<2.0); WBC,Urine <1 /hpf (0-5)
[2018-10-19 16:05] LABS: Basophils # (A) 0.1 k/uL (0-0.2); Basophils % (A) 1 %; Eosinophils # (A) 0.2 k/uL (0-0.7); Eosinophils % (A) 3 %; HCT 38.3 % (34.0-46.0); HGB 12.5 gm/dL (11.4-16.0); Lymphocytes # (A) 2.2 k/uL (1.0-4.8); Lymphocytes % (A) 31 %; MCH 33.4 pg (25.0-35.0); MCHC 32.6 g/dL (31.0-37.0); MCV 102.5 fL (80.0-100.0); Macrocytosis Slight; Mean Platelet Volume 7.7; Monocytes # (A) 0.5 k/uL (0-1.0); Monocytes % (A) 7 %; Neutrophils % (A) 56 %; Platelet Count 220 k/uL (150-450); RBC 3.73 m/uL (3.80-5.40); RDW 13.7 % (11.5-15.5); WBC 7.2 k/uL (3.8-10.6)
[2018-10-19] MEDS: ONDANSETRON 4 MG/2 ML VIAL IVP STA ×2 (16:10→17:27)
[2018-10-19] MEDS: MORPHINE SULFATE 2 MG/ML SYRINGE IVP STA ×2 (16:10→17:27)
[2018-10-19 16:14] LABS: Albumin 3.9 g/dL (3.5-5.0); Calcium 8.8 mg/dL (8.4-10.2); Total Bilirubin 0.6 mg/dL (0.2-1.3); Total Protein 6.9 g/dL (6.3-8.2)
--- NOTE | 2018-10-19 16:25 | ED ---
General Adult HPI - General Chief complaint: Nausea/Vomiting/Diarrhea Stated complaint: Side Pain Time Seen by Provider: 10/19/18 15:23 Source: patient, RN notes reviewed Mode of arrival: ambulatory Limitations: no limitations - History of Present Illness Initial comments: 83-year-old female with a past medical history of hypertension, diverticulitis, angina presents to the emergency determine for chief complaint of left-sided mid back pain. States that she noticed this yesterday. States she's getting out of a car walking to a filled tooth on a boat when she felt a twinge in the left side of her back. States it has not been there pretty consistently since then. States that it is now radiating around to the left side of her low abdomen. States it is worse when she moves a certain ways and better at rest. States she did try to call her primary care doctor but they did not call back so she came to the emergency department.Patient has no other complaints at this time including shortness of breath, chest pain, abdominal pain, nausea or vomiting, headache, or visual changes. - Related Data Home Medications Medication Instructions Recorded Confirmed Cyanocobalamin [Vitamin B-12 1,000 mcg IM Q30D 09/09/14 10/19/18 Injection] Isosorbide Mononitrate ER [Imdur] 15 mg PO DAILY 09/09/14 10/19/18 Cholecalciferol [Vitamin D3] 1,000 unit PO DAILY 09/10/14 10/19/18 Magnesium Oxide [Mag-Ox] 250 mg PO DAILY 01/21/16 10/19/18 Aspirin EC [Ecotrin Low Dose] 81 mg PO DAILY 01/25/16 10/19/18 Ubidecarenone [Co Q-10] 100 mg PO DAILY 11/06/16 10/19/18 Nebivolol HCl [Bystolic] 2.5 mg PO DAILY 06/01/18 10/19/18 Allergies Allergy/AdvReac Type Severity Reaction Status Date / Time codeine Allergy Unknown Verified 10/19/18 16:01 Penicillins Allergy Unknown Verified 10/19/18 16:01 shellfish derived [Shellfish] Allergy Unknown Verified 10/19/18 16:01 Sulfa (Sulfonamide Allergy Unknown Verified 10/19/18 16:01 Antibiotics) ibuprofen AdvReac Unknown Verified 10/19/18 16:01 Review of Systems ROS Statement: Those systems with pertinent positive or pertinent negative responses have been documented in the HPI. ROS Other: All systems not noted in ROS Statement are negative. Past Medical History Past Medical History: Hypertension Additional Past Medical History / Comment(s): diverticulosis/diverticulitis and angina in the past. Osteopenia. 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 History of Any Multi-Drug Resistant Organisms: None Reported Past Surgical History: Appendectomy, Cholecystectomy Additional Past Surgical History / Comment(s): Bilateral cataract surgery. Colonoscopy 2017(multiple in past). Past Anesthesia/Blood Transfusion Reactions: No Reported Reaction Past Psychological History: No Psychological Hx Reported Smoking Status: Never smoker Past Alcohol Use History: Occasional Past Drug Use History: None Reported - Past Family History Brother(s) Family Medical History: Cancer Additional Family Medical History / Comment(s): Bladder cancer and another brother had prostate cancer. Mother Additional Family Medical History / Comment(s): Angina Father Family Medical History: CVA/TIA Sister(s) Family Medical History: Cancer, CVA/TIA Additional Family Medical History / Comment(s): Breast cancer in her 80s. General Exam Limitations: no limitations General appearance: alert, in no apparent distress Head exam: Present: atraumatic, normocephalic, normal inspection Eye exam: Present: normal appearance, PERRL, EOMI. Absent: scleral icterus, conjunctival injection, periorbital swelling ENT exam: Present: normal exam, mucous membranes moist Neck exam: Present: normal inspection, full ROM. Absent: tenderness, meningismu s, lymphadenopathy Respiratory exam: Present: normal lung sounds bilaterally. Absent: respiratory distress, wheezes, rales, rhonchi, stridor Cardiovascular Exam: Present: regular rate, normal rhythm, normal heart sounds. Absent: systolic murmur, diastolic murmur, rubs, gallop, clicks GI/Abdominal exam: Present: soft, normal bowel sounds. Absent: distended, tenderness, guarding, rebound, rigid Back exam: Absent: CVA tenderness (R), CVA tenderness (L) Neurological exam: Present: alert Psychiatric exam: Present: normal affect, normal mood Course Vital Signs 10/19/18 10/19/18 15:17 17:26 Temperature 97.9 F Pulse Rate 67 59 L Respiratory 18 18 Rate Blood Pressure 183/74 138/71 O2 Sat by Pulse 98 96 Oximetry Medical Decision Making - Medical Decision Making 83-year-old female presents to the emergency department for a chief complaint of left mid back pain. HPI is documented. Physical exam as documented. Does seem more or less long term in nature however patient's lipase is 806 and it was elevated to 172. No abdominal tenderness but given nausea and back pain this could be acute pancreatitis. CT abdomen and pelvis negative. A history of cholecystectomy. Therefore patient will be admitted and repeat enzymes will be drawn in the morning. Patient will be kept nothing by mouth, given IV antiemetics and pain medication and parentarally hydrated as she is also dehydrated with a BUN to creatinine ratio of 27. - Lab Data Result diagrams: 10/19/18 15:54 10/19/18 15:54 Lab Results 10/19/18 10/19/18 10/19/18 Range/Units 15:43 15:54 15:54 WBC 7.2 (3.8-10.6) k/uL RBC 3.73 L (3.80-5.40) m/uL Hgb 12.5 (11.4-16.0) gm/dL Hct 38.3 (34.0-46.0) % MCV 102.5 H (80.0-100.0) fL MCH 33.4 (25.0-35.0) pg MCHC 32.6 (31.0-37.0) g/dL RDW 13.7 (11.5-15.5) % Plt Count 220 (150-450) k/uL Neutrophils % 56 % Lymphocytes % 31 % Monocytes % 7 % Eosinophils % 3 % Basophils % 1 % Neutrophils # 4.0 (1.3-7.7) k/uL Lymphocytes # 2.2 (1.0-4.8) k/uL Monocytes # 0.5 (0-1.0) k/uL Eosinophils # 0.2 (0-0.7) k/uL Basophils # 0.1 (0-0.2) k/uL Macrocytosis Slight Sodium 138 (137-145) mmol/L Potassium 4.0 (3.5-5.1) mmol/L Chloride 105 (98-107) mmol/L Carbon Dioxide 27 (22-30) mmol/L Anion Gap 6 mmol/L BUN 29 H (7-17) mg/dL Creatinine 1.07 H (0.52-1.04) mg/dL Est GFR (CKD-EPI)AfAm 55 (>60 ml/min/1.73 sqM) Est GFR (CKD-EPI)NonAf 48 (>60 ml/min/1.73 sqM) Glucose 105 H (74-99) mg/dL Calcium 8.8 (8.4-10.2) mg/dL Total Bilirubin 0.6 (0.2-1.3) mg/dL AST 26 (14-36) U/L ALT 24 (9-52) U/L Alkaline Phosphatase 53 (38-126) U/L Total Protein 6.9 (6.3-8.2) g/dL Albumin 3.9 (3.5-5.0) g/dL Amylase 171 H (30-110) U/L Lipase 806 H (23-300) U/L Urine Color Light Yellow Urine Appearance Clear (Clear) Urine pH 5.5 (5.0-8.0) Ur Specific [place] 1.008 (1.001-1.035) Urine Protein Negative (Negative) Urine Glucose (UA) Negative (Negative) Urine Ketones Negative (Negative) Urine Blood Trace H (Negative) Urine Nitrite Negative (Negative) Urine Bilirubin Negative (Negative) Urine Urobilinogen <2.0 (<2.0) mg/dL Ur Leukocyte Esterase Negative (Negative) Urine RBC 1 (0-5) /hpf Urine WBC <1 (0-5) /hpf Ur Squamous Epith Cells <1 (0-4) /hpf Urine Mucus Rare H (None) /hpf Disposition Clinical Impression: Pancreatitis, Back pain Disposition: ADMITTED IP TO THIS HOSP Condition: Good Is patient prescribed a controlled substance at d/c from ED?: No Referrals: Deven Vargas MD [Primary Care Provider] - 1-2 days
--- NOTE | 2018-10-19 17:15 | CT ---
EXAMINATION TYPE: CT abdomen pelvis wo con DATE OF EXAM: 10/19/2018 COMPARISON: 06/11/2017 HISTORY: Left flank pain CT DLP: 450.1 mGycm Automated exposure control for dose reduction was used. TECHNIQUE: Helical acquisition of images was performed from the lung bases through the pelvis. FINDINGS: LUNG BASES: No acute findings. LIVER/GB: No significant abnormality is appreciated. PANCREAS: No significant abnormality is seen. SPLEEN: No significant abnormality is seen. ADRENALS: No significant abnormality is seen. KIDNEYS AND URETERS AND BLADDER: No hydronephrosis or hydroureter. Similar findings when compared to the prior CT. FREE AIR: No free air is visualized RETROPERITONEAL ADENOPATHY: None visualized REPRODUCTIVE ORGANS: No significant abnormality is seen PELVIC ADENOPATHY: None visualized. OSSEOUS STRUCTURES: No significant abnormality is seen. BOWEL: Prominent diverticulosis pattern, but no lulu diverticulitis. IMPRESSION: NO ACUTE PROCESS.
[2018-10-19] MEDS ORDERED: NALOXONE 0.4 MG/ML 1 ML VIAL IV PRN (18:06)
[2018-10-19] MEDS ORDERED: ONDANSETRON 4 MG/2 ML VIAL IVP PRN (18:08)
[2018-10-19] MEDS ORDERED: MORPHINE SULFATE 2 MG/ML SYRINGE IVP PRN (18:09)
[2018-10-19] MEDS: SODIUM CHLORIDE 0.9% 1,000 ML IV SCH (18:34)
[2018-10-19] MEDS ORDERED: ACETAMINOPHEN TAB 325 MG TAB PO PRN (19:32)
--- NOTE | 2018-10-19 19:32 | P.HPIM ---
History of Present Illness H&P Date: 10/19/18 The patient is an 83 yo F with a PMH of HTN, diverticulitis (2 years ago), and cholecystectomy (~18 months ago) presented to the ED for L sided back pain. The patient notes that she was in her usual state of health and was out with her family yesterday when she suddenly developed a left lower back pain while partaking similar activities. The patient notes that the pain was constant, aching like, 6 out of 10, nonradiating, with no associated features. The pain gradually worsened and began to radiate to her left flank, made significant worse with movement, and alleviated with rest. The patient took some NSAIDs at home which significantly improved the pain. She called her PCP Dr. Sam perrin in the day who did not respond, at which time she decided to come to the ED. The patient notes that due to the pain, she has had poor oral intake earlier today. She however denied having any nausea, vomiting, or abdominal pain. She also denied inability to pass urine, urinary incontinence, chest pain, shortness of breath, dysuria, fever, chills, or diarrhea. Patient notes that she has neve r had pain like this before and has no prior history of muscle strains. At time of interview, the patient notes that her pain had improved to a 3 out of 10. She underwent an extensive evaluation in the emergency room with laboratory evaluation showing lipase level of 806, with WBC count 7.2, BUN 29, and creatinine 1.07. The patient subsequently underwent a noncontrast abdomen pelvis computed tomography scan which revealed no abnormalities. Review of Systems Pertinent positives and negatives as discussed in HPI, a complete review of systems was performed and all other systems are negative. Past Medical History Past Medical History: Hypertension Additional Past Medical History / Comment(s): diverticulosis/diverticulitis and angina in the past. Osteopenia. 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 History of Any Multi-Drug Resistant Organisms: None Reported Past Surgical History: Appendectomy, Cholecystectomy Additional Past Surgical History / Comment(s): Bilateral cataract surgery. Colonoscopy 2017(multiple in past). Past Anesthesia/Blood Transfusion Reactions: No Reported Reaction Past Psychological History: No Psychological Hx Reported Smoking Status: Never smoker Past Alcohol Use History: Occasional Past Drug Use History: None Reported - Past Family History Brother(s) Family Medical History: Cancer Additional Family Medical History / Comment(s): Bladder cancer and another brother had prostate cancer. Mother Additional Family Medical History / Comment(s): Angina Father Family Medical History: CVA/TIA Sister(s) Family Medical History: Cancer, CVA/TIA Additional Family Medical History / Comment(s): Breast cancer in her 80s. Medications and Allergies Home Medications Medication Instructions Recorded Confirmed Type Cyanocobalamin [Vitamin B-12 1,000 mcg IM Q30D 09/09/14 10/19/18 History Injection] Isosorbide Mononitrate ER [Imdur] 15 mg PO DAILY 09/09/14 10/19/18 History Cholecalciferol [Vitamin D3] 1,000 unit PO DAILY 09/10/14 10/19/18 History Magnesium Oxide [Mag-Ox] 250 mg PO DAILY 01/21/16 10/19/18 History Aspirin EC [Ecotrin Low Dose] 81 mg PO DAILY 01/25/16 10/19/18 History Ubidecarenone [Co Q-10] 100 mg PO DAILY 11/06/16 10/19/18 History Nebivolol HCl [Bystolic] 2.5 mg PO DAILY 06/01/18 10/19/18 History Allergies Allergy/AdvReac Type Severity Reaction Status Date / Time codeine Allergy Unknown Verified 10/19/18 16:01 Penicillins Allergy Unknown Verified 10/19/18 16:01 shellfish derived [Shellfish] Allergy Unknown Verified 10/19/18 16:01 Sulfa (Sulfonamide Allergy Unknown Verified 10/19/18 16:01 Antibiotics) ibuprofen AdvReac Unknown Verified 10/19/18 16:01 Physical Exam Vitals: Vital Signs Temp Pulse Resp BP Pulse Ox 10/19/18 17:26 59 L 18 138/71 96 10/19/18 15:17 97.9 F 67 18 183/74 98 Intake and Output 10/19/18 10/19/18 10/19/18 06:59 14:59 22:59 Other: Weight 58.06 kg General: Very pleasant female, non toxic, no distress, appears younger than stated age, normal weight Derm: no unusual rashes/lesions no unusual ecchymoses, warm, dry Head: atraumatic, normocephalic, symmetric Eyes: EOMI, no lid lag, anicteric sclera, pupils equal round reactive to light ENT: Nose and ears atraumatic, no thrush, no pharyngeal erythema Neck: No thyromegaly, no cervical lymphadenopathy, trachea midline, supple Mouth: no lip lesion, mucus membranes moist Cardiovascular: S1S2 reg, no murmur, positive posterior tibial pulse bilateral, no edema, capillary refill less than 2 seconds Lungs: CTA bilateral, no rhonchi, no rales , no accessory muscle use Abdominal: soft, nontender to palpation, no guarding, no appreciable organomegaly, normal bowel sounds Ext: no gross muscle atrophy, muscle strength 5 out of 5 in all 4 extremities grossly, no contractures, left lumbar paravertebral mild tenderness, pain reproducible with flexion or extension at the lumbar spine Neuro: CN II-XI grossly intact, light touch intact all 4 extremities, finger to nose within normal limits, Psych: Alert, oriented, appropriate affect Results CBC & Chem 7: 10/19/18 15:54 10/19/18 15:54 Labs: Abnormal Lab Results - Last 24 Hours (Table) 10/19/18 10/19/18 10/19/18 Range/Units 15:43 15:54 15:54 RBC 3.73 L (3.80-5.40) m/uL MCV 102.5 H (80.0-100.0) fL BUN 29 H (7-17) mg/dL Creatinine 1.07 H (0.52-1.04) mg/dL Glucose 105 H (74-99) mg/dL Amylase 171 H (30-110) U/L Lipase 806 H (23-300) U/L Urine Blood Trace H (Negative) Urine Mucus Rare H (None) /hpf Assessment and Plan Plan: Left lower back pain, acute muscle strain -Topical analgesics and Tylenol -PT/OT evaluation -Muscle relaxants tonight Elevated lipase -Likely secondary to dehydration -Home medications reviewed with the patient -Trend lipase -Continue with IV fluids -NPO overnight Dehydration with prerenal azotemia -Continue with IV fluids -Monitor BMP Chronic conditions: Hypertension -Continue with home meds DVT prophylaxis -Heparin The patient is admitted with an anticipated less than 2 midnight stay for evaluation of dehydration and abnormal lipase level CODE STATUS:Full Code Discussed with: Patient Anticipated discharge date: 10/20/[address]: Home A total of 35 minutes was spent on the care of this complex patient more than 50% of the time was spent in counseling and care coordination.
[2018-10-19] MEDS ORDERED: CYCLOBENZAPRINE 10 MG TAB PO SCH (21:00)
[2018-10-19] MEDS: METHYL SALICYLATE/MENTHOL CREAM 5 OZ TOPICAL SCH (21:06)
[2018-10-19 21:37] VITALS: RESP 16
[2018-10-19] MEDS ORDERED: ALPRAZolam 0.25 MG TAB PO PRN (21:43)
[2018-10-19] MEDS ORDERED: LORazepam 0.5 MG TAB PO PRN (22:08)
[2018-10-19] MEDS: HEPARIN SODIUM,PORCINE 5,000 UNIT/ML 1 ML VIAL SQ SCH (23:26)
[2018-10-20] MEDS: SODIUM CHLORIDE 0.9% 1,000 ML IV SCH (04:01)
[2018-10-20 05:30] VITALS: BP 147/75; PULSE 71; TEMP 98
[2018-10-20] MEDS: HEPARIN SODIUM,PORCINE 5,000 UNIT/ML 1 ML VIAL SQ SCH (08:20)
[2018-10-20] MEDS: METHYL SALICYLATE/MENTHOL CREAM 5 OZ TOPICAL SCH (08:21)
[2018-10-20 08:52] LABS: Calcium 8.4 mg/dL (8.4-10.2)
[2018-10-20] MEDS ORDERED: NEBIVOLOL 5 MG TAB PO SCH (09:00)
[2018-10-20] MEDS ORDERED: ASPIRIN 81 MG PO SCH (09:00)
[2018-10-20] MEDS ORDERED: ISOSORBIDE MONONITRATE ER 30 MG TAB.ER.24H PO SCH (09:00)
--- NOTE | 2018-10-20 09:25 | P.DS ---
Providers Date of admission: 10/19/18 17:58 Expected date of discharge: 10/20/18 Attending physician: Katheryn Chopra MD Primary care physician: Deven Vargas [facility] Course: 83-year-old female with PMH of hypertension, diverticulitis, cholecystectomy presented to the ED for acute onset left-sided back pain. Patient reports being out with extended family for a long period of time sitting during Labor Day weekend when she developed left-sided back pain that was described as aching in nature, 6 out of 10 in severity with no associated features. Patient also reported that she had poor oral intake that day. She denied any nausea, v omiting or abdominal pain. In the ED, vital signs were stable. CT of the abdomen and pelvis which showed no acute changes. Amylase was elevated and lipase was 806. Patient was afebrile with no leukocytosis. CMP showed BUN of 29 and creatinine of 1.07. Urinalysis was negative for leukocyte esterase or nitrates. Patient was admitted after stabilizing measures and workup for pancreatitis. Patient was seen and examined. No acute events overnight. Patient reports significant improvement in her left-sided lower back pain since yesterday. She denies any bladder or bowel incontinence, saddle anesthesia. Patient denies any nausea, vomiting or abdominal pain. No chest pain, shortness breath or palpitations. Looking forward to going home. Patient denies any dysuria. General: [non toxic], [no distress], [appears at stated age] Derm: [warm], [dry] Head: [atraumatic], [normocephalic], [symmetric] Eyes: [EOMI], [no lid lag], [anicteric sclera] Mouth: [no lip lesion], [mucus membranes moist] Cardiovascular: [S1S2 reg], [no murmur] Lungs: [CTA bilateral], [no rhonchi, no rales] , [no accessory muscle use] Abdominal: [soft], [ nontender to palpation], [no guarding], [no appreciable organomegaly] Ext: [no gross muscle atrophy], [no edema], [no contractures], [tenderness to palpation over the paraspinal muscles on the left side] Neuro: [no focal neuro deficits] Psych: [Alert], [oriented], [appropriate affect] Acute onset left lower back pain, muscular strain Elevated lipase Prerenal azotemia due to dehydration Hypertension Pain is completely resolved. States she takes tramadol at home. Heating pads have been helpful. Plans: DC home with tramadol. Advised intermittent heating pads. No need for PT and OT given return back to baseline. Lipase 806. Within normal limits on repeat. CT abdomen and pelvis unremarkable for pancreatitis. Likely due to dehydration. Plans: Resolved. BUN 29, creatinine 1.07. Likely due to dehydration. Plans: Resolved with IVF. Encourage hydration by mouth. BP 147/75. Plans: Continue Imdur, nebivolol. Monitor vitals, adjust medications as necessary. [Patient's lower back pain is completely resolved. Patient with elevated lipase, within normal limits this morning, no concerns for pancreatitis given that she has no symptoms. Will DC home today with close follow-up with PCP Dr. Vargas.] Pertinent Studies: CT abdomen and pelvis Patient Condition at Discharge: Stable Plan - Discharge Summary Discharge Rx Participant: No New Discharge Prescriptions: New traMADol HCL [Ultram] 50 mg PO Q6HR PRN 3 Days #12 tab PRN Reason: Pain Continue Isosorbide Mononitrate ER [Imdur] 15 mg PO DAILY Cyanocobalamin [Vitamin B-12 Injection] 1,000 mcg IM Q30D Cholecalciferol [Vitamin D3 (25 Mcg = 1000 Iu)] 1,000 unit PO DAILY Magnesium Oxide [Mag-Ox] 250 mg PO DAILY Aspirin EC [Ecotrin Low Dose] 81 mg PO DAILY Ubidecarenone [Co Q-10] 100 mg PO DAILY Nebivolol HCl [Bystolic] 2.5 mg PO DAILY Discharge Medication List Cyanocobalamin [Vitamin B-12 Injection] 1,000 mcg IM Q30D 09/09/14 [History] Isosorbide Mononitrate ER [Imdur] 15 mg PO DAILY 09/09/14 [History] Cholecalciferol [Vitamin D3 (25 Mcg = 1000 Iu)] 1,000 unit PO DAILY 09/10/14 [History] Magnesium Oxide [Mag-Ox] 250 mg PO DAILY 01/21/16 [History] Aspirin EC [Ecotrin Low Dose] 81 mg PO DAILY 01/25/16 [History] Ubidecarenone [Co Q-10] 100 mg PO DAILY 11/06/16 [History] Nebivolol HCl [Bystolic] 2.5 mg PO DAILY 06/01/18 [History] traMADol HCL [Ultram] 50 mg PO Q6HR PRN 3 Days #12 tab 10/20/18 [Rx] Follow up Appointment(s)/Referral(s): Deven Vargas MD [Primary Care Provider] - 1-2 days Activity/Diet/Wound Care/Special Instructions: Diet: Heart healthy Follow-up with your PCP within 1-2 days of discharge. Please take all medications as advised. Discharge Disposition: HOME SELF-CARE
== END 2018-10-20 10:10 | disposition home or self-care (01) ==
LOC: EC 15:12 → 4MS4W 17:58
PROVIDERS: ADMIT Family Medicine; ATTEND Family Medicine
DX: S39.012A Strain of muscle, fascia and tendon of lower back, initial encounter (principal); E86.0 Dehydration; R74.8 Abnormal levels of other serum enzymes; I10 Essential (primary) hypertension; I20.9 Angina pectoris, unspecified; K57.90 Diverticulosis of intestine, part unspecified, without perforation or abscess without bleeding; M85.80 Other specified disorders of bone density and structure, unspecified site; X50.9XXA Other and unspecified overexertion or strenuous movements or postures, initial encounter; Z79.82 Long term (current) use of aspirin; Z79.899 Other long term (current) drug therapy; Z88.0 Allergy status to penicillin; Z88.5 Allergy status to narcotic agent; Z88.6 Allergy status to analgesic agent; Z91.013 Allergy to seafood; Z90.49 Acquired absence of other specified parts of digestive tract; Z98.42 Cataract extraction status, left eye; Z98.41 Cataract extraction status, right eye; Z80.52 Family history of malignant neoplasm of bladder; Z80.42 Family history of malignant neoplasm of prostate; Z82.3 Family history of stroke; Z82.49 Family history of ischemic heart disease and other diseases of the circulatory system; Z80.3 Family history of malignant neoplasm of breast
CPT/HCPCS: 96360; 99285; 36415; 80053; 80048; 82150 ×2; 83690 ×2; 85025; 81001; 74176; G0378 ×2

== ENCOUNTER → 2019-10-12 | Outpatient (CLI) | payer MEDICARE, BC ==
[2019-10-12 08:08] VITALS: BP 148/88; PULSE 73; RESP 20; TEMP 98.1
--- NOTE | 2019-10-12 08:53 | P.HPOB ---
History of Present Illness H&P Date: 10/12/19 Chief Complaint: The patient is here for her routine gynecologic exam and ma mmogram. This is an 84-year-old with an LMP of 1989. The patient is without gynecologic complaints and denies any postmenopausal bleeding. She is sexually active. Review of Systems She has lost 3 pounds over the past year. She denies respiratory and G.I. problems. 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 She denies maltreatment or problems with falling. : she denies any significant problems with urinary leakage. Past Medical History Past Medical History: Hypertension Additional Past Medical History / Comment(s): diverticulosis/diverticulitis and angina in the past. Osteopenia. PAST HIGH RISK OB HISTORY: She has no history of STDs. History of Any Multi-Drug Resistant Organisms: None Reported Past Surgical History: Appendectomy, Cholecystectomy Additional Past Surgical History / Comment(s): Bilateral cataract surgery. Colonoscopy 2017(multiple in past). Past Anesthesia/Blood Transfusion Reactions: No Reported Reaction Past Psychological History: No Psychological Hx Reported Smoking Status: Never smoker Past Alcohol Use History: Occasional (0-1 per week) Past Drug Use History: None Reported Additional History: She has been since 1953 and is sexually active. 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 - Past Family History Brother(s) Family Medical History: Cancer Additional Family Medical History / Comment(s): Bladder cancer and another brother had prostate cancer. Mother Additional Family Medical History / Comment(s): Angina Father Family Medical History: CVA/TIA Sister(s) Family Medical History: Cancer Additional Family Medical History / Comment(s): from Breast cancer in her 80s. Medications and Allergies Home Medications Medication Instructions Recorded Confirmed Type Cyanocobalamin [Vitamin B-12 1,000 mcg IM Q30D 09/09/14 10/12/19 History Injection] Cholecalciferol [Vitamin D3 (25 1,000 unit PO DAILY 09/10/14 10/12/19 History Mcg = 1000 Iu)] Magnesium Oxide [Mag-Ox] 250 mg PO DAILY 01/21/16 10/12/19 History Aspirin EC [Ecotrin Low Dose] 81 mg PO DAILY 01/25/16 10/12/19 History traMADol HCL [Ultram] 50 mg PO Q6HR PRN 3 Days #12 tab 10/20/18 10/12/19 Rx Isosorbide Mononitrate ER [Imdur] 30 mg PO DAILY 10/12/19 10/12/19 History LORazepam [Ativan] 0.5 mg PO HS 10/12/19 10/12/19 History Nebivolol HCl [Bystolic] 2.5 mg PO DAILY 10/12/19 10/12/19 History Nitroglycerin 0.4 mg SL ONCE 10/12/19 10/12/19 History Allergies Allergy/AdvReac Type Severity Reaction Status Date / Time codeine Allergy Unknown Verified 10/12/19 08:08 Penicillins Allergy Unknown Verified 10/12/19 08:08 shellfish derived [Shellfish] Allergy Unknown Verified 10/12/19 08:08 Sulfa (Sulfonamide Allergy Unknown Verified 10/12/19 08:08 Antibiotics) ibuprofen AdvReac Unknown Verified 10/12/19 08:08 Exam Vital Signs Temp Pulse Resp BP Pulse Ox 10/12/19 08:00 98.1 F 73 20 148/88 96 Intake and Output 10/11/19 10/12/19 10/12/19 22:59 06:59 14:59 Other: Weight 57.606 kg Height 4 feet 11-1/2 inches, weight 127 pounds, BMI 25.2. This is a well-developed well-nourished white female who is alert and oriented times 3 in no acute distress. HEENT: Within normal limits. NECK: Supple without mass or thyromegaly. CHEST AND LUNGS: Clear to auscultation. HEART: Regular rate and rhythm. BREASTS: Are without mass or discharge. AXILLARY EXAM: Negative for adenopathy. BACK: Negative for CVA tenderness. ABDOMEN: Soft, nontender, without palpable masses. PELVIC EXAM: Normal external genitalia with mild to moderate atrophy. Cervix and vagina appear normal with mild atrophy. There is no unusual discharge. There is no evidence of prolapse. The uterus is midposition, nongravid size and nontender. There are no palpable adnexal masses or tenderness. RECTAL EXAM: Rectovaginal exam is negative for mass or tenderness and is negative for occult blood. EXTREMITIES: Nontender. IMPRESSION: 1. 84-year-old menopausal female with normal gynecologic exam. 2. History of osteopenia. PLAN: 1. Pap smear was performed. If this is negative, we will consider discontinuing Pap smears since she had a negative Pap smears documented here 2017 and 2014. She has no history of Pap smear problems. 2. Self breast awareness was discussed with the patient. 3. Screening mammogram will be done today. 4. Osteoporosis prevention was discussed. I have stressed the importance of adequate calcium, vitamin D and regular exercise. Recommended amounts of calcium and vitamin D were also discussed. Her last bone density test was done in 2014 and I have recommended that we repeat this again. She has agreed to do this and the order slip was given to the patient for this. 5. The patient was advised to return in 1-2 years for her well woman examination.
--- NOTE | 2019-10-13 10:22 | MM ---
Reason for exam: screening (asymptomatic). Last mammogram was performed 1 year and 4 months ago. History: Patient is postmenopausal. Family history of breast cancer in sister at age 85. Physical Findings: A clinical breast exam by your physician is recommended on an annual basis and results should be correlated with mammographic findings. MG 3D Screening Mammo W/Cad Bilateral CC and MLO view(s) were taken. Prior study comparison: June 01, 2018, bilateral MG 3d screening mammo w/cad. March 24, 2017, bilateral MG 3d screening mammo w/cad. There are scattered fibroglandular densities. There are benign appearing vascular calcifications bilaterally. There is no discrete abnormality. ASSESSMENT: Benign, BI-RAD 2 RECOMMENDATION: Routine screening mammogram of both breasts in 1 year.
--- NOTE | 2019-10-18 17:44 | P.PN ---
Progress Note - Text Progress Note Date: 10/18/19 OUTPATIENT FOLLOW-UP NOTE TEST(S)/RESULTS: test results from 10/12/2019 include negative Pap smear and benign mammogram. METHOD OF NOTIFICATION: a message with these results was left on the patient's voice mail. PATIENT COMMENTS: DIAGNOSIS: negative Pap smear and benign mammogram. DISCUSSION: PLAN: The patient was advised to return in 1-2 years for her well woman examination.
== END | disposition home or self-care (01) ==
LOC: WWCWWP 07:45
PROVIDERS: ATTEND Obstetrics & Gynecology
DX: Z12.31 Encounter for screening mammogram for malignant neoplasm of breast (principal)
CPT/HCPCS: 77063; 77067

== ENCOUNTER → 2020-11-27 | Outpatient (CLI) | payer MEDICARE, BC ==
[2020-11-27 10:39] VITALS: BP 123/74; PULSE 62; RESP 12; TEMP 98
--- NOTE | 2020-11-27 11:15 | P.HPOB ---
History of Present Illness H&P Date: 11/27/20 Chief Complaint: The patient is here for her routine gynecologic exam and ma mmogram. This is an 85-year-old 025 with an LMP of 1989. The patient is without gynecologic complaints. She is sexually active and denies any problems with sexual activity. Review of Systems She has lost about 6 pounds over the past year. She denies respiratory, cardiac and G.I. problems. She denies maltreatment or problems with falling. : she denies any significant problems with urinary leakage. Past Medical History Past Medical History: Hypertension Additional Past Medical History / Comment(s): diverticulosis/diverticulitis and angina in the past. Osteopenia. 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 History of Any Multi-Drug Resistant Organisms: None Reported Past Surgical History: Appendectomy, Cholecystectomy Additional Past Surgical History / Comment(s): Bilateral cataract surgery. Colonoscopy 2016(multiple in past). Past Anesthesia/Blood Transfusion Reactions: No Reported Reaction Past Psychological History: No Psychological Hx Reported Smoking Status: Never smoker Past Alcohol Use History: Occasional (0-1 per month) Past Drug Use History: None Reported Additional History: She has been since 89 and is sexually active. 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 - Past Family History Brother(s) Family Medical History: Cancer Additional Family Medical History / Comment(s): Bladder cancer and another brother had prostate cancer. Mother Additional Family Medical History / Comment(s): Angina Father Family Medical History: CVA/TIA Sister(s) Family Medical History: Cancer Additional Family Medical History / Comment(s): from Breast cancer in her 80s. Medications and Allergies Home Medications Medication Instructions Recorded Confirmed Type Cyanocobalamin [Vitamin B-12 1,000 mcg IM Q30D 09/09/14 11/27/20 History Injection] Cholecalciferol [Vitamin D3 (25 1,000 unit PO DAILY 09/10/14 11/27/20 History Mcg = 1000 Iu)] Magnesium Oxide [Mag-Ox] 250 mg PO DAILY 01/21/16 11/27/20 History Aspirin EC [Ecotrin Low Dose] 81 mg PO DAILY 01/25/16 11/27/20 History traMADol HCL [Ultram] 50 mg PO Q6HR PRN 3 Days #12 tab 10/20/18 11/27/20 Rx Isosorbide Mononitrate ER [Imdur] 30 mg PO DAILY 10/12/19 11/27/20 History LORazepam [Ativan] 0.5 mg PO HS 10/12/19 11/27/20 History Nebivolol HCl [Bystolic] 2.5 mg PO DAILY 10/12/19 11/27/20 History Nitroglycerin 0.4 mg SL ONCE PRN 10/12/19 11/27/20 History Allergies Allergy/AdvReac Type Severity Reaction Status Date / Time codeine Allergy Unknown Verified 11/27/20 10:04 Penicillins Allergy Unknown Verified 11/27/20 10:04 shellfish derived [Shellfish] Allergy Unknown Verified 11/27/20 10:04 Sulfa (Sulfonamide Allergy Unknown Verified 11/27/20 10:04 Antibiotics) ibuprofen AdvReac Unknown Verified 11/27/20 10:04 Exam Vital Signs Temp Pulse Resp BP Pulse Ox 11/27/20 10:28 98.0 F 62 12 123/74 95 Intake and Output 11/26/20 11/27/20 11/27/20 22:59 06:59 14:59 Other: Weight 55.338 kg Height 5 feet 0 inches, weight 121 pounds, BMI 23.8. This is a well-developed well-nourished white female who is alert and oriented times 3 in no acute distress. HEENT: Within normal limits. NECK: Supple without mass or thyromegaly. CHEST AND LUNGS: Clear to auscultation. HEART: Regular rate and rhythm. BREASTS: Are without mass or discharge. AXILLARY EXAM: Negative for adenopathy. BACK: Negative for CVA tenderness. ABDOMEN: Soft, nontender, without palpable masses. PELVIC EXAM: Normal external genitalia with mild to moderate atrophy. Cervix and vagina appear normal with mild to moderate atrophy. There is no unusual discharge. There is no evidence of prolapse. The uterus is midposition, nongravid size and nontender. There are no palpable adnexal masses or tenderness. RECTAL EXAM: Rectovaginal exam is negative for mass or tenderness and is negative for occult blood. EXTREMITIES: Nontender. IMPRESSION: 1. 85-year-old menopausal female with normal gynecologic exam. 2. She of osteopenia. PLAN: 1. Pap smears have been discontinued. She has had adequate screening with no history of cervical neoplasia. 2. Self breast awareness was discussed with the patient. We have also discussed symptoms associated with inflammatory breast cancer. 3. Screening mammogram will be done today. 4. Osteoporosis prevention was discussed. I have stressed the importance of adequate calcium, vitamin D and regular exercise. Recommended amounts of calcium and vitamin D were also discussed. I have recommended repeating bone density testing since her last one was done in 2014. She is declining testing at this time. She states she would not take osteoporosis treatment if she did have osteoporosis. She will call if she changes her mind about bone density testing. 5. She has completed her Covid vaccination series. She plans on getting her flu shot in the very near future. 6. The patient was advised to return in 1-2 years for her well woman examination.
--- NOTE | 2020-11-28 11:57 | MM ---
Reason for exam: screening (asymptomatic). Last mammogram was performed 1 year and 2 months ago. History: Patient is postmenopausal. Family history of breast cancer in sister at age 85. Physical Findings: A clinical breast exam by your physician is recommended on an annual basis and results should be correlated with mammographic findings. MG 3D Screening Mammo W/Cad Bilateral CC and MLO view(s) were taken. Prior study comparison: October 12, 2019, bilateral MG 3d screening mammo w/cad. June 01, 2018, bilateral MG 3d screening mammo w/cad. March 24, 2017, bilateral MG 3d screening mammo w/cad. There are scattered fibroglandular densities. No significant changes when compared with prior studies. ASSESSMENT: Benign, BI-RAD 2 RECOMMENDATION: Routine screening mammogram of both breasts in 1 year.
== END ==
LOC: WWCWWP 10:00
PROVIDERS: ATTEND Obstetrics & Gynecology
DX: Z12.31 Encounter for screening mammogram for malignant neoplasm of breast (principal); Z01.419 Encounter for gynecological examination (general) (routine) without abnormal findings; M85.80 Other specified disorders of bone density and structure, unspecified site; I10 Essential (primary) hypertension; Z80.3 Family history of malignant neoplasm of breast; Z88.2 Allergy status to sulfonamides; Z88.0 Allergy status to penicillin; Z88.6 Allergy status to analgesic agent; Z88.5 Allergy status to narcotic agent; Z91.013 Allergy to seafood; Z79.82 Long term (current) use of aspirin; Z79.899 Other long term (current) drug therapy
CPT/HCPCS: 77063; 77067

== ENCOUNTER → 2022-06-03 | Outpatient (CLI) | payer MEDICARE, BC ==
[2022-06-03 10:30] VITALS: BP 149/84; PULSE 62; RESP 17; TEMP 97.9
--- NOTE | 2022-06-03 11:46 | P.HPOB ---
History of Present Illness H&P Date: 06/03/22 Chief Complaint: The patient is here for her routine gynecologic exam and ma mmogram. This is an 86-year-old 025 with an LMP of 1989. The patient is without gynecologic complaints. She is sexually active. Review of Systems Weight has been stable. She denies respiratory or cardiac problems. GI: Certain foods can give her a stomach ache, so she avoids those foods. Past Medical History Past Medical History: Hypertension Additional Past Medical History / Comment(s): diverticulosis/diverticulitis and angina in the past. Osteopenia. 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 History of Any Multi-Drug Resistant Organisms: None Reported Past Surgical History: Appendectomy, Cholecystectomy Additional Past Surgical History / Comment(s): Bilateral cataract surgery. Colonoscopy 2017(multiple in past). Past Anesthesia/Blood Transfusion Reactions: No Reported Reaction Past Psychological History: No Psychological Hx Reported Smoking Status: Never smoker Past Alcohol Use History: Rare (0-1 per month) Past Drug Use History: None Reported Additional History: She has been since 1953 and is sexually active. 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 - Past Family History Brother(s) Family Medical History: Cancer Additional Family Medical History / Comment(s): Bladder cancer and another brother had prostate cancer. Mother Additional Family Medical History / Comment(s): Angina Father Family Medical History: CVA/TIA Sister(s) Family Medical History: Cancer Additional Family Medical History / Comment(s): from Breast cancer in her 80s. Medications and Allergies Home Medications Medication Instructions Recorded Confirmed Type Cyanocobalamin [Vitamin B-12 1,000 mcg IM Q30D 09/09/14 06/03/22 History Injection] Cholecalciferol [Vitamin D3 (25 1,000 unit PO DAILY 09/10/14 06/03/22 History Mcg = 1000 Iu)] Magnesium Oxide [Mag-Ox] 250 mg PO DAILY 01/21/16 06/03/22 History Aspirin EC [Ecotrin Low Dose] 81 mg PO DAILY 01/25/16 06/03/22 History traMADol HCL [Ultram] 50 mg PO Q6HR PRN 3 Days #12 tab 10/20/18 06/03/22 Rx Isosorbide Mononitrate ER [Imdur] 30 mg PO DAILY 10/12/19 06/03/22 History LORazepam [Ativan] 0.5 mg PO HS 10/12/19 06/03/22 History Nebivolol HCl [Bystolic] 2.5 mg PO DAILY 10/12/19 06/03/22 History Nitroglycerin 0.4 mg SL ONCE PRN 10/12/19 06/03/22 History Allergies Allergy/AdvReac Type Severity Reaction Status Date / Time codeine Allergy Unknown Verified 06/03/22 10:23 Penicillins Allergy Unknown Verified 06/03/22 10:23 shellfish derived [Shellfish] Allergy Unknown Verified 06/03/22 10:23 Sulfa (Sulfonamide Allergy Unknown Verified 06/03/22 10:23 Antibiotics) ibuprofen AdvReac Unknown Verified 06/03/22 10:23 Exam Vital Signs Temp Pulse Resp BP Pulse Ox 06/03/22 10:27 97.9 F 62 17 149/84 95 Intake and Output 06/02/22 06/03/22 06/03/22 22:59 06:59 14:59 Other: Weight 54.885 kg Height 5 feet 0 inches, weight 121 pounds, BMI 23.6. This is a well-developed well-nourished white female who is alert and oriented times 3 in no acute distress. HEENT: Within normal limits. NECK: Supple without mass or thyromegaly. CHEST AND LUNGS: Clear to auscultation. HEART: Regular rate and rhythm. BREASTS: Are without mass or discharge. AXILLARY EXAM: Negative for adenopathy. BACK: Negative for CVA tenderness. ABDOMEN: Soft, nontender, without palpable masses. PELVIC EXAM: Normal external genitalia with mild to moderate atrophy. Cervix and vagina appear normal with mild to moderate atrophy. There is no unusual discharge. There is no evidence of prolapse. The uterus is midposition, nongravid size and nontender. There are no palpable adnexal masses or tenderness. RECTAL EXAM: Rectovaginal exam is negative for mass or tenderness and is negative for occult blood. EXTREMITIES: Nontender. IMPRESSION: 1. 86-year-old menopausal female with normal gynecologic exam. 2. History of osteopenia. PLAN: 1. Pap smears have been discontinued. 2. Self breast awareness was discussed with the patient. We have also discussed symptoms associated with inflammatory breast cancer. 3. Screening mammogram was done today. 4. Osteoporosis prevention was discussed. I have stressed the importance of adequate calcium, vitamin D and regular exercise. Recommended amounts of calcium and vitamin D were also discussed. I have recommended bone density te sting, but she is declining testing and treatment with any type of prescription medication. Because she will not use prescription medication regardless of bone density findings, she does not feel the need to do bone density testing. She was instructed to call if she changes her mind about this. 5. The patient was advised to return in 1-2 years for her well woman examination.
--- NOTE | 2022-06-04 09:54 | MM ---
Reason for Exam: Screening (asymptomatic). Last mammogram was performed 1 year(s) and 6 month(s) ago. Patient History: Menarche at age 9. First Full-Term at age 18. Postmenopausal. Sister had breast cancer, age 85. Prior Study Comparison: 06/01/2018 Bilateral Screening Mammogram, [facility]. 10/12/2019 Bilateral Screening Mammogram, [facility]. 11/27/2020 Bilateral Screening Mammogram, [facility]. Tissue Density: There are scattered fibroglandular densities. Findings: Analyzed By CAD. There is no suspicious group of microcalcifications or new suspicious mass in either breast. Benign vascular calcifications within both breasts. Overall Assessment: Benign, BI-RAD 2 Management: Screening Mammogram of both breasts in 1 year. A clinical breast exam by your physician is recommended on an annual basis and results should be correlated with mammographic findings. Electronically signed and approved by: Walter Amador D.O.
== END | disposition home or self-care (01) ==
LOC: RADMAMWWP 09:50
PROVIDERS: ATTEND Obstetrics & Gynecology
DX: Z12.31 Encounter for screening mammogram for malignant neoplasm of breast (principal); Z78.0 Asymptomatic menopausal state; Z80.3 Family history of malignant neoplasm of breast
CPT/HCPCS: 77063; 77067

== ENCOUNTER 2022-09-27 10:24 | Emergency (ER) | payer MEDICARE, BC ==
[2022-09-27 10:29] VITALS: TEMP 98.2
[2022-09-27 11:06] LABS: Basophils % (A) 1 %; Eosinophils # (A) 0.2 k/uL (0-0.7); Eosinophils % (A) 3 %; HCT 39.2 % (34.0-46.0); HGB 13.3 gm/dL (11.4-16.0); Lymphocytes # (A) 2.8 k/uL (1.0-4.8); Lymphocytes % (A) 43 %; MCH 34.9 pg (25.0-35.0); MCHC 33.9 g/dL (31.0-37.0); Macrocytosis Slight; Mean Platelet Volume 8.5; Monocytes # (A) 0.3 k/uL (0-1.0); Monocytes % (A) 5 %; Neutrophils % (A) 46 %; Platelet Count 196 k/uL (150-450); RBC 3.81 m/uL (3.80-5.40); RDW 12.7 % (11.5-15.5); WBC 6.5 k/uL (3.8-10.6)
[2022-09-27 11:15] LABS: ALT 17 U/L (4-34); AST 26 U/L (14-36); African American GFR (CKD) 55 (>60 ml/min/1.73 sqM); Albumin 3.9 g/dL (3.5-5.0); Alkaline Phosphatase 50 U/L (38-126); Anion Gap 5 mmol/L; Blood Urea Nitrogen 28 mg/dL (7-17); Calcium 8.7 mg/dL (8.4-10.2); Carbon Dioxide 29 mmol/L (22-30); Chloride 104 mmol/L (98-107); Glucose 96 mg/dL (74-99); Magnesium 2.5 mg/dL (1.6-2.3); Non-African American GFR(CKD) 48 (>60 ml/min/1.73 sqM); Potassium 4.3 mmol/L (3.5-5.1); Sodium 138 mmol/L (137-145); Total Bilirubin 0.6 mg/dL (0.2-1.3); Total Protein 7.1 g/dL (6.3-8.2)
[2022-09-27 11:23] LABS: NT-Pro-B-Type Natriuretic Pept 536 pg/mL
--- NOTE | 2022-09-27 11:42 | XR ---
EXAMINATION TYPE: XR chest 2V DATE OF EXAM: 09/27/2022 COMPARISON: 02/09/2016 HISTORY: Shortness of breath TECHNIQUE: Frontal and lateral views of the chest are obtained. FINDINGS: Scattered senescent parenchymal changes noted. Hyperinflation compatible with COPD. No evidence for infiltrate. No evidence for atelectasis. Heart size is stable. Mediastinal structures are stable and grossly unremarkable. No evidence for hilar prominence. Degenerative changes dorsal spine. IMPRESSION: 1. No evidence for acute pulmonary disease.
[2022-09-27 11:51] LABS: INR 0.9 (<1.2)
--- NOTE | 2022-09-27 11:52 | ED ---
General Adult HPI - General Chief complaint: Back Pain/Injury Stated complaint: upper back pain Time Seen by Provider: 09/27/22 10:44 Source: patient, RN notes reviewed, old records reviewed Mode of arrival: ambulatory Limitations: no limitations - History of Present Illness Initial comments: This is a 87-year-old female presents emergency Department chief complaint upper back pain. Patient states that last night she's had symptoms of this. Does resolve throughout the day. She states first that she took tramadol which helped her discomfort. She states last night it started while she was asleep states that she woke up she took a nitro states it did not help. She states she can take an Ativan which alleviated all of her symptoms. She is currently asymptomatic denies chest pain denies any recent episodes chest pain denies shortness breath denies fevers chills no cough or cold-like symptoms. She states when the pain is there nothing really makes it feel better or worse. Patient denies any abdominal pain she's had a prior cholecystectomy denies any current nausea vomiting. - Related Data Home Medications Medication Instructions Recorded Confirmed Cyanocobalamin [Vitamin B-12 1,000 mcg IM Q30D 09/09/14 06/03/22 Injection] Cholecalciferol [Vitamin D3 (25 1,000 unit PO DAILY 09/10/14 06/03/22 Mcg = 1000 Iu)] Magnesium Oxide [Mag-Ox] 250 mg PO DAILY 01/21/16 06/03/22 Aspirin EC [Ecotrin Low Dose] 81 mg PO DAILY 01/25/16 06/03/22 Isosorbide Mononitrate ER [Imdur] 30 mg PO DAILY 10/12/19 06/03/22 LORazepam [Ativan] 0.5 mg PO HS 10/12/19 06/03/22 Nebivolol HCl [Bystolic] 2.5 mg PO DAILY 10/12/19 06/03/22 Nitroglycerin 0.4 mg SL ONCE PRN 10/12/19 06/03/22 Previous Rx's Medication Instructions Recorded traMADol HCL [Ultram] 50 mg PO Q6HR PRN 3 Days #12 tab 10/20/18 Allergies Allergy/AdvReac Type Severity Reaction Status Date / Time codeine Allergy Unknown Verified 09/27/22 10:29 Penicillins Allergy Unknown Verified 09/27/22 10:29 shellfish derived [Shellfish] Allergy Unknown Verified 09/27/22 10:29 Sulfa (Sulfonamide Allergy Unknown Verified 09/27/22 10:29 Antibiotics) ibuprofen AdvReac Unknown Verified 09/27/22 10:29 Review of Systems ROS Statement: Those systems with pertinent positive or pertinent negative responses have been documented in the HPI. ROS Other: All systems not noted in ROS Statement are negative. Past Medical History Past Medical History: Coronary Artery Disease (CAD), Hypertension Additional Past Medical History / Comment(s): diverticulosis/diverticulitis and angina in the past. Osteopenia. 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 History of Any Multi-Drug Resistant Organisms: None Reported Past Surgical History: Appendectomy, Cholecystectomy Additional Past Surgical History / Comment(s): Bilateral cataract surgery. Colonoscopy 2017(multiple in past). Past Anesthesia/Blood Transfusion Reactions: No Reported Reaction Past Psychological History: No Psychological Hx Reported Smoking Status: Never smoker Past Alcohol Use History: Rare Past Drug Use History: None Reported - Past Family History Brother(s) Family Medical History: Cancer Additional Family Medical History / Comment(s): Bladder cancer and another brother had prostate cancer. Mother Additional Family Medical History / Comment(s): Angina Father Family Medical History: CVA/TIA Sister(s) Family Medical History: Cancer Additional Family Medical History / Comment(s): from Breast cancer in her 80s. General Exam Limitations: no limitations General appearance: alert, in no apparent distress Head exam: Present: atraumatic, normocephalic, normal inspection Eye exam: Present: normal appearance, PERRL, EOMI. Absent: scleral icterus, conjunctival injection, periorbital swelling ENT exam: Present: normal exam, normal oropharynx, mucous membranes moist Neck exam: Present: normal inspection, full ROM. Absent: tenderness, meningismus, lymphadenopathy Respiratory exam: Present: normal lung sounds bilaterally. Absent: respiratory distress, wheezes, rales, rhonchi, stridor Cardiovascular Exam: Present: regular rate, normal rhythm, normal heart sounds. Absent: systolic murmur, diastolic murmur, rubs, gallop, clicks GI/Abdominal exam: Present: soft, normal bowel sounds. Absent: distended, te nderness, guarding, rebound, rigid Extremities exam: Present: normal inspection, full ROM, normal capillary refill, other (Pulses equal bilaterally upper and lower extremities). Absent: tenderness, pedal edema, joint swelling, calf tenderness Back exam: Present: full ROM. Absent: tenderness, paraspinal tenderness, vertebral tenderness Neurological exam: Present: alert, oriented X3, CN II-XII intact Course Vital Signs 09/27/22 09/27/22 09/27/22 10:27 12:00 14:15 Temperature 98.2 F Pulse Rate 67 58 L 61 Respiratory 20 17 19 Rate Blood Pressure 159/82 136/82 135/73 O2 Sat by Pulse 96 95 94 L Oximetry EKG Findings - EKG Comments: EKG Findings:: EKG performed at 10:34 sinus rhythm with rate of 66 MD 165 QRS 141 QT/QTC 418/431 no acute EKG changes from prior. - EKG Results: EKG: interpreted by [facility] Medical Decision Making - Medical Decision Making Was pt. sent in by a medical professional or institution (, PA, DEAF INTERPRETER, urgent care, hospital, or jail...) When possible be specific @ -No Did you speak to anyone other than the patient for history (EMS, parent, family, police, friend...)? What history was obtained from this source @ -No Did you review nursing and triage notes (agree or disagree)? Why? @ -I reviewed and agree with nursing and triage notes Were old charts reviewed (outside hosp., previous admission, EMS record, old EKG, old radiological studies, urgent care reports/EKG's, jail records)? Report findings @ -No old charts were reviewed Differential Diagnosis (chest pain, altered mental status, abdominal pain women, abdominal pain men, vaginal bleeding, weakness, fever, dyspnea, syncope, he adache, dizziness, GI bleed, back pain, seizure, CVA, palpatations, mental health, musculoskeletal)? @ -Differential Chest Pain: Stable Angina, Unstable Angina, STEMI, NSTEMI Aortic Dissection, Pneumothorax, Musculoskeletal, Esophageal Spasm GERD, Cholecystitis, Pancreatitis, Zoster, this is not meant to be an all-inclusive list. le EKG interpreted by me (3pts min.). @ -As above X-rays interpreted by me (1pt min.). @ -Chest x-ray shows no acute cardiopulmonary process. CT interpreted by me (1pt min.). @ -CT chest angiogram for PE is negative for acute PE U/S interpreted by me (1pt. min.). @ -None done What testing was considered but not performed or refused? (CT, X-rays, U/S, labs)? Why? @ -None What meds were considered but not given or refused? Why? @ -None Did you discuss the management of the patient with other professionals (professionals i.e. Dr., PA, DEAF INTERPRETER, lab, RT, psych nurse, social worker clinical, bar attendant, teacher, traffic police officer, case preparer and liner)? Give summary @ -No Was smoking cessation discussed for >3mins.? @ -No Was critical care preformed (if so, how long)? @ -No Were there social determinants of health that impacted care today? How? (Homelessness, low income, unemployed, alcoholism, drug addiction, transportation, low edu. Level, literacy, decrease access to med. care, senior care, rehab)? @ -No Was there de-escalation of care discussed even if they declined (Discuss DNR or withdrawal of care, Hospice)? DNR status @ -No What co-morbidities impacted this encounter? (DM, HTN, Smoking, COPD, CAD, Cancer, CVA, ARF, Chemo, Hep., AIDS, mental health diagnosis, sleep apnea, morbid obesity)? @ -Hypertension Was patient admitted / discharged? Hospital course, mention meds given and route, prescriptions, significant lab abnormalities, going to OR and other pertinent info. @ -Discharged patient is asymptomatic symptoms have been present and nighttime associated with muscle spasms. Patient had no complaints of chest pain her work up is negative this time including CT, laboratories studies an EKG. I did offer admission patient feels comfortable with discharge as workup is negative at this time. Undiagnosed new problem with uncertain prognosis? @ -No Drug Therapy requiring intensive monitoring for toxicity (Heparin, Nitro, Insulin, Cardizem)? @ -No Were any procedures done? @ -No Diagnosis/symptom? @ -Thoracic back pain Acute, or Chronic, or Acute on Chronic? @ -Acute Uncomplicated (without systemic symptoms) or Complicated (systemic symptoms)? @ -Uncomplicated Side effects of treatment? @ -No Exacerbation, Progression, or Severe Exacerbation? @ -No Poses a threat to life or bodily function? How? (Chest pain, USA, DC, pneumonia, PE, COPD, DKA, ARF, appy, cholecystitis, CVA, Diverticulitis, Homicidal, Suicidal, threat to staff... and all critical care pts) @ -No - Lab Data Result diagrams: 09/27/22 10:56 09/27/22 10:56 Lab Results 09/27/22 09/27/22 09/27/22 Range/Units 10:56 10:56 10:56 WBC 6.5 (3.8-10.6) k/uL RBC 3.81 (3.80-5.40) m/uL Hgb 13.3 (11.4-16.0) gm/dL Hct 39.2 (34.0-46.0) % MCV 103.0 H (80.0-100.0) fL MCH 34.9 (25.0-35.0) pg MCHC 33.9 (31.0-37.0) g/dL RDW 12.7 (11.5-15.5) % Plt Count 196 (150-450) k/uL MPV 8.5 Neutrophils % 46 % Lymphocytes % 43 % Monocytes % 5 % Eosinophils % 3 % Basophils % 1 % Neutrophils # 3.0 (1.3-7.7) k/uL Lymphocytes # 2.8 (1.0-4.8) k/uL Monocytes # 0.3 (0-1.0) k/uL Eosinophils # 0.2 (0-0.7) k/uL Basophils # 0.0 (0-0.2) k/uL Macrocytosis Slight PT 9.7 (9.0-12.0) sec INR 0.9 (<1.2) APTT 25.0 (22.0-30.0) sec D-Dimer 0.73 H (<0.60) mg/L FEU Sodium 138 (137-145) mmol/L Potassium 4.3 (3.5-5.1) mmol/L Chloride 104 (98-107) mmol/L Carbon Dioxide 29 (22-30) mmol/L Anion Gap 5 mmol/L BUN 28 H (7-17) mg/dL Creatinine 1.04 (0.52-1.04) mg/dL Est GFR (CKD-EPI)AfAm 55 (>60 ml/min/1.73 sqM) Est GFR (CKD-EPI)NonAf 48 (>60 ml/min/1.73 sqM) Glucose 96 (74-99) mg/dL Calcium 8.7 (8.4-10.2) mg/dL Magnesium 2.5 H (1.6-2.3) mg/dL Total Bilirubin 0.6 (0.2-1.3) mg/dL AST 26 (14-36) U/L ALT 17 (4-34) U/L Alkaline Phosphatase 50 (38-126) U/L Troponin I (0.000-0.034) ng/mL NT-Pro-B Natriuret Pep 536 pg/mL Total Protein 7.1 (6.3-8.2) g/dL Albumin 3.9 (3.5-5.0) g/dL 09/27/22 Range/Units 10:56 WBC (3.8-10.6) k/uL RBC (3.80-5.40) m/uL Hgb (11.4-16.0) gm/dL Hct (34.0-46.0) % MCV (80.0-100.0) fL MCH (25.0-35.0) pg MCHC (31.0-37.0) g/dL RDW (11.5-15.5) % Plt Count (150-450) k/uL MPV Neutrophils % % Lymphocytes % % Monocytes % % Eosinophils % % Basophils % % Neutrophils # (1.3-7.7) k/uL Lymphocytes # (1.0-4.8) k/uL Monocytes # (0-1.0) k/uL Eosinophils # (0-0.7) k/uL Basophils # (0-0.2) k/uL Macrocytosis PT (9.0-12.0) sec INR (<1.2) APTT (22.0-30.0) sec D-Dimer (<0.60) mg/L FEU Sodium (137-145) mmol/L Potassium (3.5-5.1) mmol/L Chloride (98-107) mmol/L Carbon Dioxide (22-30) mmol/L Anion Gap mmol/L BUN (7-17) mg/dL Creatinine (0.52-1.04) mg/dL Est GFR (CKD-EPI)AfAm (>60 ml/min/1.73 sqM) Est GFR (CKD-EPI)NonAf (>60 ml/min/1.73 sqM) Glucose (74-99) mg/dL Calcium (8.4-10.2) mg/dL Magnesium (1.6-2.3) mg/dL Total Bilirubin (0.2-1.3) mg/dL AST (14-36) U/L ALT (4-34) U/L Alkaline Phosphatase (38-126) U/L Troponin I <0.012 (0.000-0.034) ng/mL NT-Pro-B Natriuret Pep pg/mL Total Protein (6.3-8.2) g/dL Albumin (3.5-5.0) g/dL Disposition Clinical Impression: Thoracic back pain Disposition: HOME SELF-CARE Condition: Stable Instructions (If sedation given, give patient instructions): Thoracic Pain (ED) Additional Instructions: Please return to the Emergency Department if symptoms worsen or any other concerns. Is patient prescribed a controlled substance at d/c from ED?: No Referrals: Reynaldo Geronimo MD [Primary Care Provider] - 1-2 days Time of Disposition: 14:07
[2022-09-27 12:01] LABS: Prothrombin Time 9.7 sec (9.0-12.0)
--- NOTE | 2022-09-27 12:53 | CT ---
EXAMINATION TYPE: CT chest angio for PE DATE OF EXAM: 09/27/2022 COMPARISON: 01/31/2016 HISTORY: UPPER BACK PAIN, ELEVATED D-DIMER CT DLP: 230.2 mGycm CONTRAST: CT chest with contrast and 3D reconstruction with MIP imaging is performed with IV Contrast, patient injected with 80 mL of Isovue 370. Contrast-enhanced CT of the chest was performed through the course of the pulmonary arteries with ba g and mediastinal window settings submitted. 3D reconstruction with MIP imaging was also performed. PULMONARY ARTERIES: The pulmonary arteries and their major tributaries are patent. I do not see benoit dence for sizable filling defect to suggest pulmonary embolic process. LUNGS: The lungs are clear and free of infiltrate. No evidence for atelectasis. No pulmonary nodule or mass is detected. No pleural effusion. MEDIASTINUM: Thoracic aorta is of normal caliber.The heart is mildly enlarged. No evidence for medi astinal mass. No mediastinal lymph nodes greater than 1cm. HILAR STRUCTURES: No evidence for mass. No hilar lymph nodes greater than 1 cm. UPPER ABDOMEN: No significant abnormality is seen. IMPRESSION: 1. No evidence for Pulmonary embolism at this time.
[2022-09-27 14:16] VITALS: BP 135/73; PULSE 61; RESP 19
== END 2022-09-27 14:17 | disposition home or self-care (01) ==
LOC: EC 10:24
DX: M54.6 Pain in thoracic spine (principal); I10 Essential (primary) hypertension; I25.10 Atherosclerotic heart disease of native coronary artery without angina pectoris; Z79.82 Long term (current) use of aspirin; Z79.899 Other long term (current) drug therapy; Z88.0 Allergy status to penicillin; Z91.013 Allergy to seafood; Z88.2 Allergy status to sulfonamides; Z88.5 Allergy status to narcotic agent
CPT/HCPCS: 36415; 93005; 85379; 83880; 80053; 83735; 84484; 85025; 85610; 85730; 71046; 71275; 99284; Q9967